=== PATIENT | female | born 1975 | race Caucasian/White ===

== ENCOUNTER 2016-08-06 17:03 | Emergency (ER) | payer MEDICAID ==
[~2016-08-06] VITALS: Ht 172.7 cm; Wt 190.6 kg
[~2016-08-06 17:03] MED LIST: ALBU6.7H INH; ALBU8I INH; CITA20 PO; COUM5TAB PO; DOCU1CAP39 PO; LEVO75TA3 PO; METF500 PO; METO25 PO; PRAV40 PO; PRED50 PO; WARF-60 PO; ZITH250T PO
[2016-08-06 17:05] VITALS: BP 113/75; PULSE 86; RESP 19; TEMP 97.6; O2SAT 97
[2016-08-06] MEDS ORDERED: VESI5TAB PO (17:54)
[2016-08-06] MEDS ORDERED: GABA300C5 PO (17:54)
[2016-08-06] MEDS ORDERED: METO25TA3 PO (17:54)
[2016-08-06] MEDS ORDERED: METF1000 PO (17:54)
[2016-08-06] MEDS ORDERED: MELO-1 PO (17:54)
[2016-08-06] MEDS ORDERED: CYCL1TAB29 PO (17:54)
[2016-08-06] MEDS ORDERED: CITA40TA4 PO (17:54)
[2016-08-06] MEDS ORDERED: HYDR-3583 PO (17:54)
--- NOTE | 2016-08-06 18:00 | PD ---
HPI Chief Complaint: Skin Problem Time Seen by Provider: 17:50 Travel History International Travel<30 days: No Contact w/Intl Traveler<30days: No Traveled to known affect area: No History of Present Illness HPI 41-year-old female with history of PCOS on Depo-Provera, hypertension who presents for evaluation of right leg pain. Symptoms started 1 week ago. Pain is an aching pain in the right calf and distal thigh that is constant and worse with walking. Associated with redness and swelling. She has never had a DVT but she does report that 5 years ago she had an unprovoked PE and she was on Coumadin for a few years, discontinued about 1.5 years ago. Denies any trauma to the leg, denies any recent surgery, chest pain or shortness of breath. She did recently travel to [place]. No other complaints. PFSH Past Medical History Hx Anticoagulant Therapy: Yes (WARFARIN - OFF X 1 MONTH) Depression: Yes High Cholesterol: Yes Diminished Hearing: No Hypertension: Yes Medical other: Yes (hx pe) Reproductive: Yes (pcos) Immunizations Current: Yes Tetanus Vaccination: Unknown Influenza Vaccination: No ?: Not LMP: 1 MONTH Dilation and Curettage (D&C): Yes Past Surgical History Tonsillectomy: Yes Social History Alcohol Use: Yes (OCC ) Tobacco Use: Yes (1/2 PACK ) Substance Use: No Allergies-Medications (Allergen,Severity, Reaction): Coded Allergies: Egg Allergy (Verified Allergy, Severe, Nausea/Vomiting, 08/06/16) Actifed (Verified Allergy, Intermediate, rash, 08/06/16) Celebrex (Verified Allergy, Intermediate, rash, 08/06/16) Reported Meds & Prescriptions Reported Meds & Active Scripts Active Reported Hydrocodone-Acetaminophen 10-325 mg Tab 1 Tab PO Q4H PRN Flexeril (Cyclobenzaprine HCl) 10 Mg Tab 10 Mg PO TID Meloxicam 15 Mg Tab 15 Mg PO DAILY Citalopram (Citalopram Hydrobromide) 40 Mg Tab 40 Mg PO DAILY Vesicare (Solifenacin) 5 Mg Tab 5 Mg PO DAILY Metoprolol Tartrate 25 Mg Tab 25 Mg PO BID Metformin (Metformin HCl) 1,000 Mg Tab 1,000 Mg PO BIDPC With meals Gabapentin 300 Mg Cap 300 Mg PO BID Review of Systems Except as stated in HPI: all other systems reviewed are Neg Physical Exam Narrative GENERAL: Well-developed well-nourished female in no acute distress SKIN: Warm and dry. Right lower leg skin redness and tenderness to palpation. No puncture wounds, no induration or fluctuance. HEAD: Atraumatic. Normocephalic. EYES: Pupils equal and round. No scleral icterus. No injection or drainage. ENT: No nasal bleeding or discharge. Mucous membranes pink and moist. NECK: Trachea midline. No JVD. CARDIOVASCULAR: Regular rate and rhythm. No murmur appreciated. RESPIRATORY: No accessory muscle use. Clear to auscultation. Breath sounds equal bilaterally. GASTROINTESTINAL: Abdomen soft, non-tender, nondistended. MUSCULOSKELETAL: Skin as noted above with no actual pitting edema to the right lower leg. There is some tenderness to palpation of the right calf and distal thigh musculature. 2+ dorsalis pedis and posterior tibial pulses. NEUROLOGICAL: Awake and alert. No obvious cranial nerve deficits. Motor grossly within normal limits. Normal speech. Data Data Last Documented VS Vital Signs Date Time Temp Pulse Resp B/P Pulse Ox O2 Delivery O2 Flow Rate FiO2 08/06/16 17:05 97.6 86 19 113/75 97 Orders Us Leg Venous Doppler (08/06/16 17:56) Complete Blood Count With Diff (08/06/16 17:57) Basic Metabolic Panel (Bmp) (08/06/16 17:57) Act Partial Throm Time (Ptt) (08/06/16 17:57) Prothrombin Time / Inr (Pt) (08/06/16 17:57) Clindamycin Inj (Cleocin Inj) (08/06/16 19:45) Labs Laboratory Tests Test 08/06/16 18:00 White Blood Count 18.8 TH/MM3 Red Blood Count 5.18 MIL/MM3 Hemoglobin 14.4 GM/DL Hematocrit 43.7 % Mean Corpuscular Volume 84.2 FL Mean Corpuscular Hemoglobin 27.8 PG Mean Corpuscular Hemoglobin 33.0 % Concent Red Cell Distribution Width 14.8 % Platelet Count 401 TH/MM3 Mean Platelet Volume 7.2 FL Neutrophils (%) (Auto) 62.6 % Lymphocytes (%) (Auto) 27.0 % Monocytes (%) (Auto) 5.1 % Eosinophils (%) (Auto) 2.1 % Basophils (%) (Auto) 3.2 % Neutrophils # (Auto) 11.7 TH/MM3 Lymphocytes # (Auto) 5.1 TH/MM3 Monocytes # (Auto) 1.0 TH/MM3 Eosinophils # (Auto) 0.4 TH/MM3 Basophils # (Auto) 0.6 TH/MM3 CBC Comment DIFF FINAL Differential Comment Prothrombin Time 10.3 SEC Prothromb Time International 0.9 RATIO Ratio Activated Partial 26.6 SEC Thromboplast Time Sodium Level 141 MEQ/L Potassium Level 4.2 MEQ/L Chloride Level 104 MEQ/L Carbon Dioxide Level 28.2 MEQ/L Anion Gap 9 MEQ/L Blood Urea Nitrogen 15 MG/DL Creatinine 1.20 MG/DL Estimat Glomerular Filtration 50 ML/MIN Rate Random Glucose 80 MG/DL Calcium Level 8.8 MG/DL [facility] Medical Decision Making Medical Screen Exam Complete: Yes Emergency Medical Condition: Yes Medical Record Reviewed: Yes Differential Diagnosis Right leg DVT, cellulitis, dependent edema, erysipelas Narrative Course 41-year-old female presents with right leg pain and redness for the past week. We'll check for DVT with ultrasound, basic lab work ordered. Ultrasound is negative. She does have an elevated white count at 18.8. She appears well. She does not appear septic. Plan is to treat her for cellulitis as an outpatient. She'll be given a dose of IV clindamycin here and discharged with Bactrim and Keflex. Return for worsening symptoms. Diagnosis Primary Impression: Cellulitis of right leg Additional Instructions: Antibiotics as prescribed. Follow-up with primary care physician. Return for worsening symptoms. Med/Other Pt SpecificInfo: Prescription(s) given Scripts Cephalexin (Keflex)500 Mg [id number] Mg PO Q6H 10 Days Ref 0 Prov:Mercedes Vernon MD 08/06/16 Sulfamethoxazole-Trimethoprim (Bactrim DS)800-160 Mg Tab1 Tab PO BID #20 TAB Ref 0 Prov:Mercedes Vernon MD 08/06/16 Disposition: 01 DISCHARGE HOME Condition: Stable George Horton Aug 06, 2016 18:00
[2016-08-06 18:12] LABS: AUTOMATED NEUTROPHIL # 11.7 TH/MM3 (1.8-7.7); BASOPHIL # 0.6 TH/MM3 (0-0.2); BASOPHIL % 3.2 % (0.0-2.0); EOSINOPHIL # 0.4 TH/MM3 (0-0.4); EOSINOPHIL % 2.1 % (0.0-4.0); HEMATOCRIT 43.7 % (35.0-46.0); LYMPHOCYTE # 5.1 TH/MM3 (1.0-4.8); MEAN CELL VOLUME 84.2 FL (80.0-100.0); MEAN CORPUSCULAR HEMOGLOBIN 27.8 PG (27.0-34.0); MONO % 5.1 % (0.0-8.0); NEUT % 62.6 % (16.0-70.0); PLATELET COUNT 401 TH/MM3 (150-450); RED BLOOD COUNT 5.18 MIL/MM3 (4.00-5.30); RED CELL DISTRIBUTION WIDTH 14.8 % (11.6-17.2); WHITE BLOOD COUNT 18.8 TH/MM3 (4.0-11.0)
[2016-08-06 18:18] LABS: HEMO FLAGS DIFF FINAL
[2016-08-06 18:23] LABS: POTASSIUM 4.2 MEQ/L (3.5-5.1)
[2016-08-06 18:25] LABS: BICARBONATE 28.2 MEQ/L (21.0-32.0)
[2016-08-06 18:28] LABS: APTT (PATIENT) 26.6 SEC (24.3-30.1); INTERNATIONAL NORMALIZED RATIO 0.9 RATIO; PROTHROMBIN TIME - PATIENT 10.3 SEC (9.8-11.6)
--- NOTE | 2016-08-06 19:23 | RADHPO ---
EXAM DATE/TIME: 08/06/2016 18:47 [facility] COMPARISON: No previous studies available for comparison. INDICATIONS : Right leg pain and redness. MEDICAL HISTORY : Hypercholesterolemia. Hypertension. Pulmonary embolism. Polycystic ovarian syndrome. Anticoagulan t therapy, Warfarin. Depression. SURGICAL HISTORY : Tonsillectomy. Dilation and curettage. ENCOUNTER: Initial ACUITY: 1 week PAIN SCORE: 4/10 LOCATION: Right leg. TECHNIQUE: Venous ultrasound of the leg was performed from the inguinal ligament to the proximal calf. Real-kimberlee e, color Doppler and spectral tracing, compression and augmentation techniques were used. FINDINGS: There is normal compressibility of the deep venous system from the inguinal region to the proximal ca lf. No echogenic clot is seen in the lumen of the common femoral, femoral, popliteal, and posterior tibial veins. There is a normal response of the venous system to proximal and distal augmentation an d respiration. CONCLUSION: Negative exam with no evidence of deep venous thrombosis. Neo Marroquin MD on August 06, 2016 at 19:21 Board Certified Radiologist. This report was verified electronically.
[2016-08-06] MEDS ORDERED: BACT800T5 PO (19:35)
[2016-08-06] MEDS ORDERED: CEPH-460 PO (19:35)
[2016-08-06] MEDS ORDERED: CLINDAMYCIN INJ 600 MG in SODIUM CHLORIDE 0.9% INJ 100 ML IV ONE (19:45)
[2016-08-06 19:57] VITALS: BP 109/56; PULSE 84; RESP 18; O2SAT 97
== END 2016-08-06 20:47 | disposition home or self-care (01) ==
LOC: PHED 17:03 → PHEFT 20:47
DX: L03.115 Cellulitis of right lower limb (principal); I10 Essential (primary) hypertension; E28.2 Polycystic ovarian syndrome; E78.00 Pure hypercholesterolemia, unspecified; Z86.711 Personal history of pulmonary embolism; F17.210 Nicotine dependence, cigarettes, uncomplicated; D72.829 Elevated white blood cell count, unspecified
CPT/HCPCS: 80048; 85025; 85610; 85730; 93971; 96365

== ENCOUNTER 2016-08-09 10:38 | Emergency (ER) | payer MEDICAID ==
[~2016-08-09] VITALS: Ht 172.7 cm; Wt 186.9 kg
[~2016-08-09 10:38] MED LIST changes: -ALBU6.7H INH; -ALBU8I INH; +BACT800T5 PO; +CEPH-460 PO; -CITA20 PO; +CITA40TA4 PO; -COUM5TAB PO; +CYCL1TAB29 PO; -DOCU1CAP39 PO; +GABA300C5 PO; +HYDR-3583 PO; -LEVO75TA3 PO; +MELO-1 PO; +METF1000 PO; -METF500 PO; -METO25 PO; +METO25TA3 PO; -PRAV40 PO; -PRED50 PO; +VESI5TAB PO; -WARF-60 PO; -ZITH250T PO
[2016-08-09 10:49] VITALS: BP 138/72; PULSE 76; RESP 18; TEMP 98.1; O2SAT 96
--- NOTE | 2016-08-09 12:14 | PD ---
HPI Chief Complaint: Skin Problem Time Seen by Provider: 12:14 Travel History International Travel<30 days: No Contact w/Intl Traveler<30days: No Traveled to known affect area: No History of Present Illness HPI 41-year-old female presents to the ED for recheck of cellulitis of the right lower leg. Patient was seen on 08/06 given IV clindamycin and discharged with by mouth Bactrim and Keflex. She endorses compliance with medication. On presentation she complains of itching of the rash of her right lower leg. She states that she feels as if it's spread slightly. She does endorse improvement of the pain symptoms that were present initially. She denies fever or chills. PFSH Past Medical History Hx Anticoagulant Therapy: Yes (WARFARIN - OFF X 1 MONTH) Depression: Yes High Cholesterol: Yes Diminished Hearing: No Hypertension: Yes Reproductive: Yes (pcos) Immunizations Current: Yes Tetanus Vaccination: Unknown Influenza Vaccination: No ?: Unknown Dilation and Curettage (D&C): Yes Past Surgical History Tonsillectomy: Yes Social History Alcohol Use: Yes (OCC ) Tobacco Use: Yes (1/2 PACK ) Substance Use: No Allergies-Medications (Allergen,Severity, Reaction): Coded Allergies: Egg Allergy (Verified Allergy, Severe, Nausea/Vomiting, 08/06/16) Actifed (Verified Allergy, Intermediate, rash, 08/06/16) Celebrex (Verified Allergy, Intermediate, rash, 08/06/16) Reported Meds & Prescriptions Reported Meds & Active Scripts Active Keflex (Cephalexin) 500 Mg Cap 500 Mg PO Q6H 10 Days Bactrim DS (Sulfamethoxazole-Trimethoprim) 800-160 Mg Tab 1 Tab PO BID Reported Hydrocodone-Acetaminophen 10-325 mg Tab 1 Tab PO Q4H PRN Flexeril (Cyclobenzaprine HCl) 10 Mg Tab 10 Mg PO TID Meloxicam 15 Mg Tab 15 Mg PO DAILY Citalopram (Citalopram Hydrobromide) 40 Mg Tab 40 Mg PO DAILY Vesicare (Solifenacin) 5 Mg Tab 5 Mg PO DAILY Metoprolol Tartrate 25 Mg Tab 25 Mg PO BID Metformin (Metformin HCl) 1,000 Mg Tab 1,000 Mg PO BIDPC With meals Gabapentin 300 Mg Cap 300 Mg PO BID Review of Systems Except as stated in HPI: all other systems reviewed are Neg Physical Exam Narrative GENERAL: Well-nourished, well-developed well-appearing obese white female in no acute distress. SKIN: Warm and dry. Scattered erythematous rash of the left lower extremity. Concentrated on the anterior lower salazar, diffusing and scattered to just below the popliteal space. No popliteal LAD. HEAD: Normocephalic. EYES: No scleral icterus. No injection or drainage. NECK: Supple, trachea midline. No JVD or lymphadenopathy. CARDIOVASCULAR: Regular rate and rhythm without murmurs, gallops, or rubs. RESPIRATORY: Breath sounds equal bilaterally. No accessory muscle use. GASTROINTESTINAL: Abdomen soft, non-tender, nondistended. MUSCULOSKELETAL: No cyanosis, or edema. BACK: Nontender without obvious deformity. No CVA tenderness. Data Data Last Documented VS Vital Signs Date Time Temp Pulse Resp B/P Pulse Ox O2 Delivery O2 Flow Rate FiO2 08/09/16 10:49 98.1 76 18 138/72 96 Room Air Orders Complete Blood Count With Diff (08/09/16 12:20) Labs Laboratory Tests Test 08/09/16 12:20 White Blood Count 14.4 TH/MM3 Red Blood Count 5.01 MIL/MM3 Hemoglobin 14.0 GM/DL Hematocrit 41.9 % Mean Corpuscular Volume 83.6 FL Mean Corpuscular Hemoglobin 27.9 PG Mean Corpuscular Hemoglobin 33.4 % Concent Red Cell Distribution Width 14.8 % Platelet Count 353 TH/MM3 Mean Platelet Volume 7.3 FL Neutrophils (%) (Auto) 62.0 % Lymphocytes (%) (Auto) 21.6 % Monocytes (%) (Auto) 6.9 % Eosinophils (%) (Auto) 5.9 % Basophils (%) (Auto) 3.6 % Neutrophils # (Auto) 8.9 TH/MM3 Lymphocytes # (Auto) 3.1 TH/MM3 Monocytes # (Auto) 1.0 TH/MM3 Eosinophils # (Auto) 0.9 TH/MM3 Basophils # (Auto) 0.5 TH/MM3 CBC Comment DIFF FINAL Differential Comment MDM Medical Decision Making Medical Screen Exam Complete: Yes Emergency Medical Condition: Yes Differential Diagnosis cellulitis versus sepsis versus wound recheck versus other Narrative Course 41-year-old female presents to the ED for recheck of cellulitis of the right lower leg. Patient was seen on 08/06 given IV clindamycin and discharged with by mouth Bactrim and Keflex. She endorses compliance with medication. On presentation she complains of itching of the rash of her right lower leg. She states that she feels as if it's spread slightly. She does endorse improvement of the pain symptoms that were present initially. She denies fever or chills. Vitals reviewed. Physical exam reveals an obese white female in no acute distress. There is a scattered erythematous rash of the left lower extremity. Concentrated on the anterior lower salazar, diffusing and scattered to just below the popliteal space. No popliteal LAD. I reviewed the patient's record and was unable to ascertain if the symptoms had indeed worsened. CBC reveals white count of 14.4, decreased as compared to previous white count of 18+. Patient was instructed to continue taking antibiotics as prescribed, consider adding an anti-inflammatory medication, follow up with primary care provider. We discussed reasons to return to the ED. She indicated understanding instructions and was amenable to plan of care. She is stable and discharged home. Diagnosis Primary Impression: Cellulitis of right leg Referrals: Primary Care Physician Patient Instructions: Cellulitis (ED), General Instructions Additional Instructions: Rest, hydrate. Avoid hot showers as this can worsen the rash. Continue taking antibiotics as prescribed. Consider taking 400 mg of ibuprofen every 8 hours to reduce inflammation. Follow up with your primary care provider. Return to the ED for any urgent or emergent medical condition. Disposition: 01 DISCHARGE HOME Condition: Stable Beena Rao Aug 09, 2016 12:14
[2016-08-09 12:44] LABS: AUTOMATED NEUTROPHIL # 8.9 TH/MM3 (1.8-7.7); BASOPHIL # 0.5 TH/MM3 (0-0.2); BASOPHIL % 3.6 % (0.0-2.0); EOSINOPHIL # 0.9 TH/MM3 (0-0.4); EOSINOPHIL % 5.9 % (0.0-4.0); HEMATOCRIT 41.9 % (35.0-46.0); HEMO FLAGS DIFF FINAL; LYMPH % 21.6 % (9.0-44.0); LYMPHOCYTE # 3.1 TH/MM3 (1.0-4.8); MEAN CELL VOLUME 83.6 FL (80.0-100.0); MEAN CORPUSCULAR HEMOGLOBIN 27.9 PG (27.0-34.0); MEAN CORPUSCULAR HGB CONC 33.4 % (32.0-36.0); MONO % 6.9 % (0.0-8.0); PLATELET COUNT 353 TH/MM3 (150-450); RED BLOOD COUNT 5.01 MIL/MM3 (4.00-5.30); RED CELL DISTRIBUTION WIDTH 14.8 % (11.6-17.2); WHITE BLOOD COUNT 14.4 TH/MM3 (4.0-11.0)
== END 2016-08-09 13:17 | disposition home or self-care (01) ==
LOC: PHEFT 10:38
DX: L03.115 Cellulitis of right lower limb (principal)
CPT/HCPCS: 85025; 99283

== ENCOUNTER 2016-12-30 15:51 | Observation (INO) | payer MEDICAID, OTHER ==
[~2016-12-30] VITALS: Ht 172.7 cm; Wt 200.0 kg
[2016-12-30 15:53] VITALS: BP 118/56; PULSE 77; RESP 18; TEMP 97.8; O2SAT 94
--- NOTE | 2016-12-30 15:59 | PD ---
Physical Exam Date Seen by Provider: Dec 30, 2016 Time Seen by Provider: 15:53 Narrative Pt is a 41 year old female presenting to the ED for evaluation of chest pain, SOB, low O2 readings at home. Pt described the chest pain as a squeezing sensation that radiates to her neck. Pt reports her pain as a 4/10. Awaiting bed placement. MDM Supervised Visit with KODI: Gaby Whittington Dec 30, 2016 15:59
[2016-12-30] MEDS ORDERED: SODIUM CHLORIDE 0.9% FLUSH 10 ML FLUSH IVF PRN (18:15)
[2016-12-30] MEDS ORDERED: ASPIRIN 325 MG TAB PO ONE (18:15)
[2016-12-30] MEDS ORDERED: BUPR150CR PO (18:42)
[2016-12-30] MEDS ORDERED: METO50TA PO (18:42)
[2016-12-30 18:44] LABS: BASOPHIL # 0.1 TH/MM3 (0-0.2); BASOPHIL % 0.5 % (0.0-2.0); EOSINOPHIL # 0.7 TH/MM3 (0-0.4); EOSINOPHIL % 4.9 % (0.0-4.0); HEMATOCRIT 38.7 % (35.0-46.0); HEMO FLAGS DIFF FINAL; LYMPH % 28.1 % (9.0-44.0); LYMPHOCYTE # 4.2 TH/MM3 (1.0-4.8); MEAN CELL VOLUME 84.6 FL (80.0-100.0); MEAN CORPUSCULAR HEMOGLOBIN 28.2 PG (27.0-34.0); MEAN CORPUSCULAR HGB CONC 33.4 % (32.0-36.0); MONO % 6.3 % (0.0-8.0); NEUT % 60.2 % (16.0-70.0); PLATELET COUNT 313 TH/MM3 (150-450); RED BLOOD COUNT 4.57 MIL/MM3 (4.00-5.30); RED CELL DISTRIBUTION WIDTH 15.7 % (11.6-17.2); WHITE BLOOD COUNT 14.9 TH/MM3 (4.0-11.0)
[2016-12-30] MEDS ORDERED: NITROGLYCERIN 0.4 MG SL 25 TABS/BTL SL ONE (18:45)
[2016-12-30] MEDS ORDERED: TRAZ50TA12 PO (18:46)
[2016-12-30] MEDS ORDERED: K-TA10TA PO (18:46)
[2016-12-30] MEDS ORDERED: FURO1TAB62 PO (18:46)
[2016-12-30] MEDS ORDERED: CETI-1 PO (18:46)
[2016-12-30] MEDS ORDERED: MEDR150I IM (18:46)
[2016-12-30] MEDS ORDERED: LOSA100T PO (18:46)
--- NOTE | 2016-12-30 18:51 | RADRPT ---
EXAM DATE/TIME: 12/30/2016 18:03 [facility] COMPARISON: CHEST SINGLE AP, October 20, 2015, 19:18. INDICATIONS : Shortness of breath and chest pain. MEDICAL HISTORY : Hypertension. Smoker. Asthma. SURGICAL HISTORY : None. ENCOUNTER: Initial ACUITY: 3 days PAIN SCORE: 6/10 LOCATION: chest FINDINGS: Slight bibasilar parenchymal opacities are present. No significant effusion. Cardiac contours are sat isfactory. CONCLUSION: Mild basilar parenchymal opacities. Wing Carr MD on December 30, 2016 at 18:40 Board Certified Radiologist. This report was verified electronically.
[2016-12-30 19:02] LABS: ANION GAP 4 MEQ/L (5-15); BICARBONATE 29.1 MEQ/L (21.0-32.0); BLOOD UREA NITROGEN 9 MG/DL (7-18); CHLORIDE 101 MEQ/L (98-107); GLOMERULAR FILTRATION RATE 63 ML/MIN (>89); MAGNESIUM 2.1 MG/DL (1.5-2.5); POTASSIUM 4.1 MEQ/L (3.5-5.1); SODIUM (NA) 134 MEQ/L (136-145)
[2016-12-30 19:05] LABS: APTT (PATIENT) 25.7 SEC (24.3-30.1); INTERNATIONAL NORMALIZED RATIO 0.9 RATIO; PROTHROMBIN TIME - PATIENT 10.2 SEC (9.8-11.6)
[2016-12-30 19:07] VITALS: BP 112/55; PULSE 68; RESP 18; O2SAT 98
--- NOTE | 2016-12-30 19:24 | PD ---
HPI Chief Complaint: Chest Pain Time Seen by Provider: 19:21 Travel History International Travel<30 days: No Contact w/Intl Traveler<30days: No Traveled to known affect area: No History of Present Illness HPI 41-year-old female that presents to the ED for evaluation of left-sided chest pain and shortness of breath. Per patient she's had this on and off for the past 2-3 days. She has a history of pulmonary embolism in the past. Per patient she's been told that she also has CHF in the past. She has a history of smoking, hypertension, high cholesterol but takes no medications for the cholesterol and no diabetes. She does have a strong family history of heart disease. She states that nothing makes it better or worse. Per patient the pain has become more consistent today and this is concerning her. Per patient he comes in spells but they're becoming more frequent. Per patient the pain is 6 out of 10. No recent travel. Takes no hormones. Denies any abdominal pain. Nausea or vomiting. No bowel movement or urinary issues. She has not taken anything for this. Taken no aspirin today. She has noticed in the area. she does tell me that she has a history of irregular heart rate that comes on and off and she takes medications for this. PFSH Past Medical History Hx Anticoagulant Therapy: Yes (WARFARIN - OFF X 1 MONTH) Depression: Yes Cardiovascular Problems: Yes (HTN, IRREGULAR HEARTBEAT, CHF) High Cholesterol: Yes Diminished Hearing: No Fibromyalgia: Yes Hypertension: Yes Musculoskeletal: Yes (chronic knee and back pain) Reproductive: Yes (pcos) Respiratory: Yes (SLEEP APNEA) Immunizations Current: Yes Sleep Apnea: Yes Influenza Vaccination: No ?: Not LMP: 2016 - PT ON DEPO PROVERA : 1 Para: 1 Dilation and Curettage (D&C): Yes Past Surgical History Tonsillectomy: Yes Social History Alcohol Use: Yes (OCC ) Tobacco Use: Yes (5 cigs) Substance Use: No Allergies-Medications (Allergen,Severity, Reaction): Coded Allergies: Egg Allergy (Verified Allergy, Severe, Nausea/Vomiting, 12/30/16) Sulfa (Verified Allergy, Severe, SHORTNESS OF BREATH, HIVES, 12/30/16) Actifed (Verified Allergy, Intermediate, rash, 12/30/16) Celebrex (Verified Allergy, Intermediate, rash, 12/30/16) Reported Meds & Prescriptions Reported Meds & Active Scripts Active Reported Zyrtec (Cetirizine HCl) 10 Mg Tablet 10 Mg PO HS Losartan (Losartan Potassium) 100 Mg Tab 100 Mg PO DAILY K-Tab (Potassium Chloride) 10 Meq Tab 10 Meq PO DAILY Lasix (Furosemide) 20 Mg Tab 20 Mg PO DAILY Trazodone (Trazodone HCl) 50 Mg Tab 50 Mg PO HS Medroxyprogesterone Inj 150 Mg/Ml Inj 150 Mg IM Q90D Wellbutrin SR 12 HR (Bupropion HCl) 150 Mg Tab 150 Mg PO Q12HR Metoprolol Tartrate 50 Mg Tab 50 Mg PO BID Hydrocodone-Acetaminophen 10-325 mg Tab 1 Tab PO Q8HR PRN Flexeril (Cyclobenzaprine HCl) 10 Mg Tab 10 Mg PO TID Meloxicam 15 Mg Tab 15 Mg PO DAILY Citalopram (Citalopram Hydrobromide) 40 Mg Tab 40 Mg PO DAILY Vesicare (Solifenacin) 5 Mg Tab 5 Mg PO DAILY Metformin (Metformin HCl) 1,000 Mg Tab 1,000 Mg PO BIDPC With meals Gabapentin 300 Mg Cap 300 Mg PO TID Review of Systems Except as stated in HPI: all other systems reviewed are Neg Physical Exam Narrative GENERAL: Very overweight SKIN: Warm and dry. HEAD: Atraumatic. Normocephalic. EYES: Pupils equal and round. No scleral icterus. No injection or drainage. ENT: No nasal bleeding or discharge. Mucous membranes pink and moist. Tongue is midline. No uvula deviation. NECK: Trachea midline. No JVD. CARDIOVASCULAR: Regular rate and rhythm. No murmurs, S3, S4. RESPIRATORY: No accessory muscle use. Clear to auscultation. Breath sounds equal bilaterally. GASTROINTESTINAL: Abdomen soft, non-tender, nondistended. Hepatic and splenic margins not palpable. MUSCULOSKELETAL: Extremities without clubbing, cyanosis, or edema. No obvious deformities. Full range of motion of the upper and lower extremities bilaterally. 2+ pulses bilaterally. NEUROLOGICAL: Awake and alert. No obvious cranial nerve deficits. Motor grossly within normal limits. Five out of 5 muscle strength in the arms and legs. Normal speech. PSYCHIATRIC: Appropriate mood and affect; insight and judgment normal. Data Data Last Documented VS Vital Signs Date Time Temp Pulse Resp B/P Pulse Ox O2 Delivery O2 Flow Rate FiO2 12/30/16 19:07 68 18 112/55 98 12/30/16 15:53 97.8 Orders Electrocardiogram (12/30/16 18:06) Basic Metabolic Panel (Bmp) (12/30/16 18:06) B-Type Natriuretic Peptide (12/30/16 18:06) Ckmb (Isoenzyme) Profile (12/30/16 18:06) Complete Blood Count With Diff (12/30/16 18:06) D-Dimer (12/30/16 18:) Magnesium (Mg) (12/30/16 18:06) Prothrombin Time / Inr (Pt) (12/30/16 18:06) Act Partial Throm Time (Ptt) (12/30/16 18:06) Troponin I (12/30/16 18:) Lipase (12/30/16 18:06) Chest, Single Ap (12/30/16 18:06) Ecg Monitoring (12/30/16 18:06) Bilateral Bp Monitoring (12/30/16 18:06) Iv Access Insert/Monitor (12/30/16 18:06) Oximetry (12/30/16 18:06) Oxygen Administration (12/30/16 18:06) Aspirin (Aspirin) (12/30/16 18:15) Sodium Chloride 0.9% Flush (Ns Flush) (12/30/16 18:15) Electrocardiogram (12/30/16 15:48) Urinalysis - C+S If Indicated (12/30/16 18:41) Nitroglycerin Sl (Nitrostat Sl) (12/30/16 18:45) Ct Pulmonary Angiogram (12/30/16 19:29) Iohexol 350 Inj (Omnipaque 350 Inj) (12/30/16 20:01) Diet As Tolerated (12/30/16 20:59) Admit Order (Ed Use Only) (12/30/16 22:06) Labs Laboratory Tests Test 12/30/16 12/30/16 18:20 19:35 White Blood Count 14.9 TH/MM3 Red Blood Count 4.57 MIL/MM3 Hemoglobin 12.9 GM/DL Hematocrit 38.7 % Mean Corpuscular Volume 84.6 FL Mean Corpuscular Hemoglobin 28.2 PG Mean Corpuscular Hemoglobin 33.4 % Concent Red Cell Distribution Width 15.7 % Platelet Count 313 TH/MM3 Mean Platelet Volume 7.2 FL Neutrophils (%) (Auto) 60.2 % Lymphocytes (%) (Auto) 28.1 % Monocytes (%) (Auto) 6.3 % Eosinophils (%) (Auto) 4.9 % Basophils (%) (Auto) 0.5 % Neutrophils # (Auto) 9.0 TH/MM3 Lymphocytes # (Auto) 4.2 TH/MM3 Monocytes # (Auto) 0.9 TH/MM3 Eosinophils # (Auto) 0.7 TH/MM3 Basophils # (Auto) 0.1 TH/MM3 CBC Comment DIFF FINAL Differential Comment Prothrombin Time 10.2 SEC Prothromb Time International 0.9 RATIO Ratio Activated Partial 25.7 SEC Thromboplast Time D-Dimer Quantitative (PE/DVT) 0.56 MG/L FEU Sodium Level 134 MEQ/L Potassium Level 4.1 MEQ/L Chloride Level 101 MEQ/L Carbon Dioxide Level 29.1 MEQ/L Anion Gap 4 MEQ/L Blood Urea Nitrogen 9 MG/DL Creatinine 0.98 MG/DL Estimat Glomerular Filtration 63 ML/MIN Rate Random Glucose 85 MG/DL Calcium Level 9.2 MG/DL Magnesium Level 2.1 MG/DL Total Creatine Kinase 33 U/L Troponin I LESS THAN 0.02 NG/ML B-Type Natriuretic Peptide 20 PG/ML Lipase 105 U/L Urine Color YELLOW Urine Turbidity CLEAR Urine pH 5.5 Urine Specific [place] 1.016 Urine Protein NEG mg/dL Urine Glucose (UA) NEG mg/dL Urine Ketones NEG mg/dL Urine Occult Blood SMALL Urine Nitrite NEG Urine Bilirubin NEG Urine Urobilinogen LESS THAN 2.0 MG/DL Urine Leukocyte Esterase LARGE Urine WBC 4 /hpf Urine Squamous Epithelial 2 /hpf Cells Microscopic Urinalysis Comment CULT NOT INDICATED MDM Medical Decision Making Medical Screen Exam Complete: Yes Emergency Medical Condition: Yes Medical Record Reviewed: Yes Interpretation(s) EKG shows sinus rhythm with no sign of acute ischemia or arrhythmia. Read by me and attending. CBC Diagram 12/30/16 18:20 BMP Diagram 12/30/16 18:20 Last Impressions Chest X-Ray 12/30/16 1806 Signed Impressions: Service Date/Time: Friday, December 30, 2016 18:03 - CONCLUSION: Mild basilar parenchymal opacities. Wing Carr MD CT pulm negative Troponin and CKMB negative Differential Diagnosis Chest pain versus a typical chest pain versus PE versus ACS versus pneumonia versus CHF Narrative Course 41-year-old female that presents to the ED for evaluation of chest pain. Patient was properly examined and was found to have signs and symptoms consistent appears to be chest pain. Unclear etiology. Labs and imaging were ordered. Patient was given aspirin as well. Labs and imaging showed no sign of acute disease. Patient was reassured. At this time patient will be admitted to the chest pain center for chest pain workup. Patient agrees with plan. Diagnosis Primary Impression: Chest pain in adult Admitting Information Admitting Physician Requests: Observation Yvon Layne Dec 30, 2016 19:24
[2016-12-30] MEDS ORDERED: IOHEXOL 350 MG/ML 10 ML VIAL (for RAD DIAG) IV ONE (20:01)
[2016-12-30 20:04] LABS: BLOOD, URINE SMALL (NEG); COMMENT (UR) CULT NOT INDICATED; CULTURE IF INDICATED CULT NOT INDICATED; GLUCOSE,URINE NEG (NEG); KETONE, URINE NEG (NEG); NITRITE,URINE NEG (NEG); PH, URINE 5.5 (5.0-8.5); SQUAMOUS EPITHELIAL CELL URINE 2 /hpf (0-5); URINE COLOR YELLOW (YELLW/STRAW)
--- NOTE | 2016-12-30 20:11 | RADRPT ---
EXAM DATE/TIME: 12/30/2016 19:47 [facility] COMPARISON: No previous studies available for comparison. INDICATIONS : Chest pain. IV CONTRAST: 75 cc Omnipaque 350 (iohexol) IV RADIATION DOSE: 25.62 CTDIvol (mGy) ; Patient body habitus MEDICAL HISTORY : Hypertension. Cardiovascular disease Congestive heart failure. SURGICAL HISTORY : Tonsillectomy. D&C ENCOUNTER: Initial ACUITY: 1 day PAIN SCALE: 6/10 LOCATION: Bilateral chest TECHNIQUE: Volumetric scanning of the chest was performed using a pulmonary embolism protocol MIP images were re constructed. Using automated exposure control and adjustment of the mA and/or kV according to patien t size, radiation dose was kept as low as reasonably achievable to obtain optimal diagnostic quality images. DICOM format image data is available electronically for review and comparison. Follow-up recommendations for detected pulmonary nodules are based at a minimum on nodule size and pa tient risk factors according to Fleischner Society Guidelines. FINDINGS: No filling defects in the pulmonary arteries to suggest pulmonary embolic disease. There is chronic a telectasis and scarring at the right lung base. No pleural or pericardial effusion. Findings are lima lar to September 2015. No acute findings in the upper abdomen. CONCLUSION: 1. Negative for pulmonary embolus. Chronic scarring and atelectasis right lung base. Christopher Hoyt MD on December 30, 2016 at 20:07 Board Certified Radiologist. This report was verified electronically.
[2016-12-30 21:51] LABS: CREATINE KINASE 33 U/L (26-192)
[2016-12-30] MEDS ORDERED: SODIUM CHLORIDE 0.9% FLUSH 10 ML FLUSH IV FLUSH PRN (22:15)
[2016-12-30 22:25] VITALS: O2SAT 96
[2016-12-30 23:07] VITALS: BP 115/56; PULSE 83; RESP 18; O2SAT 99
[2016-12-30 23:55] LABS: CREATINE KINASE 34 U/L (26-192)
[2016-12-31] VITALS (7 sets, daily range): BP systolic 99–128; BP diastolic 53–58; PULSE 72–84; RESP 20–22; TEMP 97.8–98.1; O2SAT 95–96
[2016-12-31 02:38] LABS: CREATINE KINASE 25 U/L (26-192)
[2016-12-31] MEDS ORDERED: ONDANSETRON HCL 4 MG/2 ML VIAL IV PRN (08:00)
[2016-12-31] MEDS ORDERED: NITROGLYCERIN 0.4 MG SL 25 TABS/BTL SL PRN (08:00)
[2016-12-31] MEDS ORDERED: ACETAMINOPHEN 500 MG CPLT PO PRN (08:00)
[2016-12-31] MEDS ORDERED: SODIUM CHLORIDE 0.9% FLUSH 10 ML FLUSH IV FLUSH SCH (09:00)
--- NOTE | 2016-12-31 09:34 | HHI.HP ---
[facility] Primary Care Physician Dr. Jimenez Chief Complaint Chest pain History of Present Illness 41-year-old female with history of hypertension, morbidly obese, hyperlipidemia , and chronic pain presents to emergency room for further evaluation of chest pain. Onset Monday. Location left anterior chest and under her left breast. Characterized as sharp stabbing pain. Duration seconds. Since Monday pain was intermittent stating Monday pain became more frequent and severe. No associated symptoms of nausea, vomiting, diaphoresis, or shortness of breath. Endorses deep breathing made pain worse. No particular movements or position make pain better or worse. No known precipitating factors relieving factors may have been aspirin provided emergency room stating after receiving aspirin pain "he's up." Endorses similar discomfort approximately 4 5 years ago. During that time she was thoroughly tested with cardiac stress testing and a cardiac catheterization. She was living in [place] at that time. Review of Systems General: No fatigue,weakness, fever, chills, or recent illness. Has been in her general state of health. HEENT: No AN, no vision changes, no nasal congestion or drainage CV: As stated above. No current chest pain or pressure, reporting 2 brief episodes of chest pain since arrival to chest pain center. Remote history of palpitations. No intermittent leg pain or dizziness. RESP: No SOB, cough, wheeze, or recent URI. Continues to smoke. History of asthma as a child. Diagnosed with sleep apnea. Has not uses CPAP in many months due to mask not fitting well. GI: No bowel changes, reports Intermittent diarrhea and constipation is her "normal." No nausea, vomiting, distention, melena, or blood in the stool. No change in appetite. No unintentional weight gain or weight loss. Reports she has tried multiple times to be approved for gastric banding or bypass. : No dysuria, urgency, or frequency. STORE PRODUCT DEMONSTRATOR: History of polycystic ovarian disease, last menses one year ago, no chance of reports she is a lesbian. History of endometriosis and heavy bleeding therefore was placed on Depo-Provera injection. EXT: Occasional dependent lower leg edema MS: Chronic back, right hip, and bilateral knee discomfort. Uses a cane as needed as her left knee occasional "andre." No recent falls. NEURO: No LOC or motor/sensory deficits PSYCH: History of depression currently controlled on current medication regimen. No anxiety or situational stress Past Family Social History Allergies: Coded Allergies: Egg Allergy (Verified Allergy, Severe, Nausea/Vomiting, 12/30/16) Sulfa (Verified Allergy, Severe, SHORTNESS OF BREATH, HIVES, 12/30/16) Actifed (Verified Allergy, Intermediate, rash, 12/30/16) Celebrex (Verified Allergy, Intermediate, rash, 12/30/16) Adhesives (Verified Allergy, Mild, Itching, 12/31/16) Past Medical History Hypertension, sleep apnea, fibromyalgia, chronic pain, hyperlipidemia, PE, polycystic ovarian disease, morbid obesity, endometriosis Past Surgical History Tonsillectomy, D&C Reported Medications Active Reported Zyrtec (Cetirizine HCl) 10 Mg Tablet 10 Mg PO HS Losartan (Losartan Potassium) 100 Mg Tab 100 Mg PO DAILY K-Tab (Potassium Chloride) 10 Meq Tab 10 Meq PO DAILY Lasix (Furosemide) 20 Mg Tab 20 Mg PO DAILY Trazodone (Trazodone HCl) 50 Mg Tab 50 Mg PO HS Medroxyprogesterone Inj 150 Mg/Ml Inj 150 Mg IM Q90D Wellbutrin SR 12 HR (Bupropion HCl) 150 Mg Tab 150 Mg PO Q12HR Metoprolol Tartrate 50 Mg Tab 50 Mg PO BID Hydrocodone-Acetaminophen 10-325 mg Tab 1 Tab PO Q8HR PRN Flexeril (Cyclobenzaprine HCl) 10 Mg Tab 10 Mg PO TID Meloxicam 15 Mg Tab 15 Mg PO DAILY Citalopram (Citalopram Hydrobromide) 40 Mg Tab 40 Mg PO DAILY Vesicare (Solifenacin) 5 Mg Tab 5 Mg PO DAILY Metformin (Metformin HCl) 1,000 Mg Tab 1,000 Mg PO BIDPC With meals Gabapentin 300 Mg Cap 300 Mg PO TID Active Ordered Medications Current Medications Medications (Trade) Dose Ordered Sig/Marilynn Route Start Time Stop Time Status Last Admin (NS Flush) 2 ml BID IV FLUSH 12/31/16 09:00 (Tylenol) 500 mg Q4H PRN PO 12/31/16 08:00 (Zofran Inj) 4 mg Q6H PRN IV 12/31/16 08:00 (Nitrostat Sl) 0.4 mg Q5M PRN SL 12/31/16 08:00 Family History Noncontributory for early onset cardiovascular disease. Mother from massive heart attack at age 58history of kidney disease and diabetes. Social History Known hypertension. No known diabetes, currently taking metformin for polycystic disease. Years ago diagnosed with hyperlipidemia and was on statin therapy. States current PCP has not reordered her statin but she is unsure of current lipid panel. Lifelong smoker. Smoked one2 packs daily currently smoking 5 cigarettes daily. Denies any alcohol or illegal drug use. Endorses sedentary lifestyle. . 15 year old daughter. Ambulates with a cane. Past cardiac testing No recent stress testing. Cardiac catheterization 5-6 years ago while living in [place]. Reports catheterization was normal. Physical Exam Vital Signs Vital Signs Date Time Temp Pulse Resp B/P Pulse Ox O2 Delivery O2 Flow Rate FiO2 12/31/16 08:52 97.8 75 20 128/58 95 12/31/16 04:24 98.1 78 22 113/53 96 12/31/16 03:59 84 12/31/16 00:11 72 12/30/16 23:07 83 18 115/56 99 12/30/16 22:25 96 12/30/16 19:07 68 18 112/55 98 12/30/16 19:07 68 18 112/55 98 12/30/16 18:06 81 12/30/16 15:53 97.8 77 18 118/56 94 Physical Exam GENERAL: Alert WN, WD, NAD, pleasant, morbidly obese female HEAD: NC, AT EYES: Sclera clear, conjunctiva without injection, pupils equal and round ENT: Mucous membranes pink and moist, no nasal discharge or bleeding, tongue pierced NECK: Supple, no masses, trachea midline CV: RRR, without murmur, rub, gallop, no JVD, S1-S2 no S3-S4. No carotid bruits. RESP: Clear lungs throughout bilateral, no crackles, wheeze, rhonchi, symmetrical chest rise, nonlabored, able to speak in full sentences ABD: Soft, NT, ND, no masses, positive bowel tones, obese BACK: No CVAT EXT: Pulses +24, trace dependent edema MS: Normal tone 4 extremities, left anterior chest tenderness reproducible upon palpation. No obvious deformities, full range of motion only limited due to size NEURO: CN II through CN XII grossly intact, motor strength 5/5 PSYCH: A+O 3, pleasant affect, appropriate speech, appropriate mood and affect , insight and judgment SKIN: Normal turgor, normal texture, brisk cap refill, multiple tattoos, right eyebrow piercing Laboratory Laboratory Tests Test 12/30/16 12/30/16 12/30/16 12/31/16 18:20 19:35 22:55 01:30 White Blood Count 14.9 Red Blood Count 4.57 Hemoglobin 12.9 Hematocrit 38.7 Mean Corpuscular Volume 84.6 Mean Corpuscular Hemoglobin 28.2 Mean Corpuscular Hemoglobin 33.4 Concent Red Cell Distribution Width 15.7 Platelet Count 313 Mean Platelet Volume 7.2 Neutrophils (%) (Auto) 60.2 Lymphocytes (%) (Auto) 28.1 Monocytes (%) (Auto) 6.3 Eosinophils (%) (Auto) 4.9 Basophils (%) (Auto) 0.5 Neutrophils # (Auto) 9.0 Lymphocytes # (Auto) 4.2 Monocytes # (Auto) 0.9 Eosinophils # (Auto) 0.7 Basophils # (Auto) 0.1 CBC Comment DIFF FINAL Differential Comment Prothrombin Time 10.2 Prothromb Time International 0.9 Ratio Activated Partial 25.7 Thromboplast Time D-Dimer Quantitative (PE/DVT) 0.56 Sodium Level 134 Potassium Level 4.1 Chloride Level 101 Carbon Dioxide Level 29.1 Anion Gap 4 Blood Urea Nitrogen 9 Creatinine 0.98 Estimat Glomerular Filtration 63 Rate Random Glucose 85 Calcium Level 9.2 Magnesium Level 2.1 Total Creatine Kinase 33 34 25 Troponin I LESS THAN 0.02 LESS THAN 0.02 LESS THAN 0.02 B-Type Natriuretic Peptide 20 Lipase 105 Urine Color YELLOW Urine Turbidity CLEAR Urine pH 5.5 Urine Specific [place] 1.016 Urine Protein NEG Urine Glucose (UA) NEG Urine Ketones NEG Urine Occult Blood SMALL Urine Nitrite NEG Urine Bilirubin NEG Urine Urobilinogen LESS THAN 2.0 Urine Leukocyte Esterase LARGE Urine WBC 4 Urine Squamous Epithelial 2 Cells Microscopic Urinalysis Comment CULT NOT INDICATED Result Diagram: 12/30/16181912/30/161819 Imaging Last Imp[address] CT Angiography 12/30/161928 Signed Impressions: Service Date/Time: Friday, December 30, 2016 19:47 - CONCLUSION: 1. Negative for pulmonary embolus. Chronic scarring and atelectasis right lung base. Christopher Hoyt MD Chest X-Ray 12/30/161805 Signed Impressions: Service Date/Time: Friday, December 30, 2016 18:03 - CONCLUSION: Mild basilar parenchymal opacities. Wing Carr MD Course EKG Normal sinus rhythm, normal axis, no ST or T-segment changes Assessment and Plan Assessment and Plan Chest painadmitted to chest pain center. Ruled out with 3 sets of EKGs, cardiac enzymes, and monitored overnight. Seen and evaluated by Dr. Aaron Antunez. Chest discomfort clearly musculoskeletal. Explained to patient with normal cardiac catheterization 5 years ago and reproducible chest wall pain no further cardiac testing required. Plans to discharged this afternoon. Patient and whom is at bedside, agreeable to plan a care. Musculoskeletal chest wall painencourage use of heating pad to affected area. May use [id number] Aleve, Motrin, or Tylenol as needed for pain relief. Instructed to follow-up with PCP if pain persists or not improved after 710 days. Hypertensioncontinue losartan, Lasix, Metoprolol Depressioncontinue Wellbutrin and citalopram Polycystic ovarian diseasehold metformin, instructed to restart metformin in 48 hours, Depo-Provera injection (as previously instructed), Fibromyalgia-continue gabapentin, increase daily activity as able Theresa Perez Dec 31, 2016 09:34
[2016-12-31] MEDS ORDERED: LOSARTAN 50 MG TAB PO SCH (10:00)
[2016-12-31] MEDS ORDERED: CITALOPRAM HYDROBROMIDE 40 MG TAB PO SCH (10:00)
[2016-12-31] MEDS ORDERED: buPROPion HCL 150 MG SUSTAINED RELEASE TAB PO SCH (10:00)
[2016-12-31] MEDS ORDERED: FUROSEMIDE 20 MG TAB PO SCH (10:00)
[2016-12-31] MEDS ORDERED: METOPROLOL TARTRATE 50 MG TAB PO SCH (10:00)
[2016-12-31] MEDS ORDERED: POTASSIUM CHLORIDE 10 MEQ CONTROLLED RELEASE TAB PO SCH (10:00)
[2016-12-31] MEDS ORDERED: metFORMIN HCL 500 MG TAB PO SCH (12:00)
[2016-12-31] MEDS ORDERED: diphenhydrAMINE HCL 25 MG CAP PO ONE (12:00)
--- NOTE | 2016-12-31 12:53 | HHI.DCPOC ---
Discharge Care Plan Goals to Promote Your Health * To prevent worsening of your condition and complications * To maintain your health at the optimal level Directions to Meet Your Goals Take your medications as prescribed Follow your dietary instruction Follow activity as directed Keep your appointments as scheduled Take your immunizations and boosters as scheduled If your symptoms worsen call your PCP, if no PCP go to Urgent Care Center or Emergency Room Smoking is Dangerous to Your Health. Avoid second hand smoke Call the 24-hour hour crisis hotline for domestic abuse at Theresa Perez Dec 31, 2016 12:53
[2016-12-31] MEDS ORDERED: GABAPENTIN 300 MG CAP PO SCH (13:00)
--- NOTE | 2016-12-31 14:55 | EKG ---
Date Performed: 12/30/2016 Time Performed: 23:02:20 PTAGE: 41 years EKG: Sinus rhythm NONSPECIFIC T-WAVE ABNORMALITY BORDERLINE ECG WARNING: DATA QUALITY MAY AFFECT INTERPRETATION PREVIOUS TRACING : 12/30/2016 18.39 Since previous tracing, no significant change noted DOCTOR: Aaron Antunez Interpretating Date/Time 12/31/2016 14:54:31
--- NOTE | 2016-12-31 14:59 | EKG ---
Date Performed: 12/30/2016 Time Performed: 18:39:13 PTAGE: 41 years EKG: Sinus rhythm LOW QRS VOLTAGE IN PRECORDIAL LEADS BORDERLINE ECG PREVIOUS TRACING : 12/30/2016 15.48 Since previous tracing, no significant change noted DOCTOR: Aaron Antunez Interpretating Date/Time 12/31/2016 14:57:25
--- NOTE | 2016-12-31 15:00 | EKG ---
Date Performed: 12/30/2016 Time Performed: 15:48:53 PTAGE: 41 years EKG: Sinus rhythm NORMAL ECG NO PREVIOUS TRACING Since previous tracing, no significant change noted DOCTOR: Aaron Antunez Interpretating Date/Time 12/31/2016 14:59:30
--- NOTE | 2016-12-31 15:03 | EKG ---
Date Performed: 12/31/2016 Time Performed: 01:49:23 PTAGE: 41 years EKG: Sinus rhythm NONSPECIFIC T-WAVE ABNORMALITY BORDERLINE ECG PREVIOUS TRACING : 12/30/2016 23.02 Since previous tracing, no significant change noted DOCTOR: Aaron Antunez Interpretating Date/Time 12/31/2016 15:01:41
== END 2016-12-31 15:10 | disposition home or self-care (01) ==
LOC: NEPE 15:51 → NEDA 22:09 → NEPGCP 23:40
DX: R07.89 Other chest pain (principal); I11.0 Hypertensive heart disease with heart failure; I50.9 Heart failure, unspecified; E78.5 Hyperlipidemia, unspecified; E78.00 Pure hypercholesterolemia, unspecified; G47.30 Sleep apnea, unspecified; J98.11 Atelectasis; F32.9 Major depressive disorder, single episode, unspecified; E28.2 Polycystic ovarian syndrome; M79.7 Fibromyalgia; R06.02 Shortness of breath; J45.909 Unspecified asthma, uncomplicated; R91.8 Other nonspecific abnormal finding of lung field; M25.569 Pain in unspecified knee; M54.9 Dorsalgia, unspecified; G89.29 Other chronic pain; E66.01 Morbid (severe) obesity due to excess calories; F17.210 Nicotine dependence, cigarettes, uncomplicated; Z79.899 Other long term (current) drug therapy; Z79.84 Long term (current) use of oral hypoglycemic drugs; Z86.711 Personal history of pulmonary embolism; Z82.49 Family history of ischemic heart disease and other diseases of the circulatory system
CPT/HCPCS: 71010; 71275; 80048; 81001; 82550; 83690; 83735; 83880; 84484; 85025; 85379; 85610; 85730; 93005; 99285; G0378; Q9967

== ENCOUNTER 2017-05-11 22:41 | Inpatient (IN) | payer OTHER ==
[~2017-05-11] VITALS: Ht 172.7 cm; Wt 226.0 kg
[~2017-05-11 22:41] MED LIST changes: -BACT800T5 PO; +BUPR150CR PO; -CEPH-460 PO; +CETI-1 PO; +CYCL10TA PO; -CYCL1TAB29 PO; +FURO1TAB62 PO; +K-TA10TA PO; +LOSA100T PO; +MEDR150I IM; -MELO-1 PO; +MELO15TA20 PO; -METO25TA3 PO; +METO50TA PO; +TRAZ50TA12 PO; -VESI5TAB PO; +VESI5TAB2 PO
[2017-05-11 22:48] VITALS: BP 106/61; PULSE 120; RESP 22; TEMP 99.3; O2SAT 94
[2017-05-11] MEDS ORDERED: RESP: ALBUTEROL 2.5 MG/IPRATROPIUM 0.5 MG NEB (SCH) INH ONE (23:00)
[2017-05-11] MEDS ORDERED: SODIUM CHLORID 0.9% 500 ML INJ 500 ML IV ONE (23:00)
[2017-05-11 23:03] VITALS: RESP 22; O2SAT 95
--- NOTE | 2017-05-11 23:05 | PD ---
HPI Chief Complaint: Respiratory Distress Time Seen by Provider: 22:48 Travel History International Travel<30 days: No Contact w/Intl Traveler<30days: No Traveled to known affect area: No History of Present Illness HPI The patient is a 42-year-old female who presents to the emergency department for shortness of breath. The patient states she recently travel to [place], became short of breath while she was in [place]. Initially the patient was seen in emergency department and told that she was short of breath because she was obese. She then return for lower extremity edema and had an ultrasound that was negative for DVT. The patient returned home today became more short of breath. The patient had a pulse oximetry at home which stated she was 75% on room air. Patient did call EMS when they arrived the patient's O2 sat was in the low 80s on room air. The patient does have a history of previous pulmonary embolism and was on Coumadin for several years, however, stopped taking Coumadin on her own. The patient does complain of shortness of breath with mild wheezing, does have a history tobacco use. The patient's last cigarette was approximately 9:30 PM. She denies any fever, chills, or sweats. She denies any personal history of congestive heart failure. Patient's symptoms are moderate, worse with exertion, and slightly alleviated with oxygen administration. The patient did receive Solu-Medrol 125 mg intravenously and 3 albuterol nebulizers prior to arrival. PFSH Past Medical History Hx Anticoagulant Therapy: Yes (WARFARIN - OFF X 1 MONTH) Depression: Yes Cardiac Catheterization: Yes Cardiovascular Problems: Yes (HTN, IRREGULAR HEARTBEAT) High Cholesterol: Yes Diminished Hearing: No Fibromyalgia: Yes Hypertension: Yes Musculoskeletal: Yes (chronic knee and back pain) Reproductive: Yes (pcos) Respiratory: Yes (SLEEP APNEA) Immunizations Current: Yes Sleep Apnea: Yes ?: Not : 1 Para: 1 Dilation and Curettage (D&C): Yes Past Surgical History Tonsillectomy: Yes Social History Alcohol Use: Yes (OCC ) Tobacco Use: Yes (5 cigs) Substance Use: No Allergies-Medications (Allergen,Severity, Reaction): Coded Allergies: Sulfa (Sulfonamide Antibiotics) (Unverified Allergy, Severe, SHORTNESS OF BREATH, HIVES, 05/11/17) egg (Unverified Allergy, Severe, Nausea/Vomiting, 05/11/17) celecoxib (Unverified Allergy, Intermediate, rash, 05/11/17) pseudoephedrine (Unverified Allergy, Intermediate, rash, 05/11/17) triprolidine (Unverified Allergy, Intermediate, rash, 05/11/17) adhesive (Unverified Allergy, Mild, Itching, 05/11/17) Reported Meds & Prescriptions Reported Meds & Active Scripts Active Reported Zyrtec (Cetirizine HCl) 10 Mg Tablet 10 Mg PO HS Losartan (Losartan Potassium) 100 Mg Tab 100 Mg PO DAILY K-Tab (Potassium Chloride) 10 Meq Tab 10 Meq PO DAILY Lasix (Furosemide) 20 Mg Tab 20 Mg PO DAILY Trazodone (Trazodone HCl) 50 Mg Tab 50 Mg PO HS Medroxyprogesterone Inj 150 Mg/Ml Inj 150 Mg IM Q90D Wellbutrin SR 12 HR (Bupropion HCl) 150 Mg Tab 150 Mg PO Q12HR Metoprolol Tartrate 50 Mg Tab 50 Mg PO BID Hydrocodone-Acetaminophen 10-325 mg Tab 1 Tab PO Q8HR PRN Flexeril (Cyclobenzaprine HCl) 10 Mg Tab 10 Mg PO TID Meloxicam 15 Mg Tab 15 Mg PO DAILY Citalopram (Citalopram Hydrobromide) 40 Mg Tab 40 Mg PO DAILY Vesicare (Solifenacin) 5 Mg Tab 5 Mg PO DAILY Metformin (Metformin HCl) 1,000 Mg Tab 1,000 Mg PO BIDPC With meals Gabapentin 300 Mg Cap 300 Mg PO TID Review of Systems Except as stated in HPI: all other systems reviewed are Neg General / Constitutional: No: Fever, Chills Cardiovascular: Positive: Dyspnea on exertion, No: Chest Pain or Discomfort Respiratory: Positive: Shortness of Breath, Wheezing Gastrointestinal: No: Nausea, Vomiting, Abdominal Pain Musculoskeletal: Positive: Edema Neurologic: No: Dizziness Physical Exam Narrative GENERAL: Awake, alert, pleasant 42-year-old female appears her stated age and appears to be in moderate respiratory distress. SKIN: Focused skin assessment warm/dry. HEAD: Atraumatic. Normocephalic. EYES: Pupils equal and round. No scleral icterus. No injection or drainage. ENT: No nasal bleeding or discharge. Mucous membranes pink and moist. NECK: Trachea midline. No JVD. CARDIOVASCULAR: Regular, tachycardic with a heart rate in the 120s. RESPIRATORY: Mild tachypnea with a respiratory rate of 24. Prolonged respiratory phase with diffuse wheezes. GASTROINTESTINAL: Abdomen soft, morbidly obese. MUSCULOSKELETAL: No obvious deformities. No clubbing. No cyanosis. Bilateral lower extremity pitting edema with mild erythema. NEUROLOGICAL: Awake and alert. No obvious cranial nerve deficits. Motor grossly within normal limits. Normal speech. PSYCHIATRIC: Appropriate mood and affect; insight and judgment normal. Data Data Last Documented VS Vital Signs Date Time Temp Pulse Resp B/P (MAP) Pulse Ox O2 Delivery O2 Flow Rate FiO2 05/12/17 00:12 95 Non-Rebreather 15.00 05/11/17 23:03 22 05/11/17 22:48 99.3 120 106/61 (76) Orders Orders Complete Blood Count With Diff (05/11/17 22:58) Comprehensive Metabolic Panel (05/11/17 22:58) B-Type Natriuretic Peptide (05/11/17 22:58) Act Partial Throm Time (Ptt) (05/11/17 22:58) Prothrombin Time / Inr (Pt) (05/11/17 22:58) Magnesium (Mg) (05/11/17 22:58) Ckmb (Isoenzyme) Profile (05/11/17 22:58) Troponin I (05/11/17 22:58) Iv Access Insert/Monitor (05/11/17 22:58) Ecg Monitoring (05/11/17 22:58) Oximetry (05/11/17 22:58) Oxygen Administration (05/11/17 22:58) Chest, Single Ap (05/11/17 22:58) Ct Pulmonary Angiogram (05/11/17 22:58) Sodium Chloride 0.9% Flush (Ns Flush) (05/11/17 23:00) Albuterol-Ipratropium Neb (Duoneb Neb) (05/11/17 23:00) Sodium Chlorid 0.9% 500 Ml Inj (Ns 500 M (05/11/17 23:00) CKMB (05/11/17 23:00) CKMB% (05/11/17 23:00) Admit Order (Ed Use Only) (05/12/17 01:29) Labs Laboratory Tests Test 05/11/17 23:00 White Blood Count 18.8 TH/MM3 Red Blood Count 4.25 MIL/MM3 Hemoglobin 12.0 GM/DL Hematocrit 36.3 % Mean Corpuscular Volume 85.5 FL Mean Corpuscular Hemoglobin 28.1 PG Mean Corpuscular Hemoglobin Concent 32.9 % Red Cell Distribution Width 15.4 % Platelet Count 326 TH/MM3 Mean Platelet Volume 7.6 FL Neutrophils (%) (Auto) 69.8 % Lymphocytes (%) (Auto) 18.9 % Monocytes (%) (Auto) 7.3 % Eosinophils (%) (Auto) 3.5 % Basophils (%) (Auto) 0.5 % Neutrophils # (Auto) 13.1 TH/MM3 Lymphocytes # (Auto) 3.5 TH/MM3 Monocytes # (Auto) 1.4 TH/MM3 Eosinophils # (Auto) 0.7 TH/MM3 Basophils # (Auto) 0.1 TH/MM3 CBC Comment DIFF FINAL Differential Comment Prothrombin Time 10.3 SEC Prothromb Time International Ratio 1.0 RATIO Activated Partial Thromboplast Time 25.0 SEC Blood Urea Nitrogen 17 MG/DL Creatinine 1.35 MG/DL Random Glucose 155 MG/DL Total Protein 7.1 GM/DL Albumin 3.2 GM/DL Calcium Level 8.5 MG/DL Magnesium Level 2.0 MG/DL Alkaline Phosphatase 82 U/L Aspartate Amino Transf (AST/SGOT) 28 U/L Alanine Aminotransferase (ALT/SGPT) 26 U/L Total Bilirubin 0.1 MG/DL Sodium Level 141 MEQ/L Potassium Level 3.9 MEQ/L Chloride Level 105 MEQ/L Carbon Dioxide Level 27.6 MEQ/L Anion Gap 8 MEQ/L Estimat Glomerular Filtration Rate 43 ML/MIN Total Creatine Kinase 787 U/L Creatine Kinase MB 2.0 NG/ML Creatine Kinase MB % 0.3 % Troponin I 0.30 NG/ML B-Type Natriuretic Peptide 220 PG/ML MDM Medical Decision Making Medical Screen Exam Complete: Yes Emergency Medical Condition: Yes Medical Record Reviewed: Yes Interpretation(s) EKG reveals sinus tachycardia with a heart rate of 118. RSR prime in V1. Nonspecific T wave changes. Last Impressions Chest X-Ray 05/11/17 3707 Signed Impressions: Service Date/Time: April 23:17 - CONCLUSION: Stable chest appearance. Bibasilar parenchymal opacities. Wing Carr MD Laboratory Tests Test 05/11/17 23:00 White Blood Count 18.8 TH/MM3 Red Blood Count 4.25 MIL/MM3 Hemoglobin 12.0 GM/DL Hematocrit 36.3 % Mean Corpuscular Volume 85.5 FL Mean Corpuscular Hemoglobin 28.1 PG Mean Corpuscular Hemoglobin Concent 32.9 % Red Cell Distribution Width 15.4 % Platelet Count 326 TH/MM3 Mean Platelet Volume 7.6 FL Neutrophils (%) (Auto) 69.8 % Lymphocytes (%) (Auto) 18.9 % Monocytes (%) (Auto) 7.3 % Eosinophils (%) (Auto) 3.5 % Basophils (%) (Auto) 0.5 % Neutrophils # (Auto) 13.1 TH/MM3 Lymphocytes # (Auto) 3.5 TH/MM3 Monocytes # (Auto) 1.4 TH/MM3 Eosinophils # (Auto) 0.7 TH/MM3 Basophils # (Auto) 0.1 TH/MM3 CBC Comment DIFF FINAL Differential Comment Prothrombin Time 10.3 SEC Prothromb Time International Ratio 1.0 RATIO Activated Partial Thromboplast Time 25.0 SEC Blood Urea Nitrogen 17 MG/DL Creatinine 1.35 MG/DL Random Glucose 155 MG/DL Total Protein 7.1 GM/DL Albumin 3.2 GM/DL Calcium Level 8.5 MG/DL Magnesium Level 2.0 MG/DL Alkaline Phosphatase 82 U/L Aspartate Amino Transf (AST/SGOT) 28 U/L Alanine Aminotransferase (ALT/SGPT) 26 U/L Total Bilirubin 0.1 MG/DL Sodium Level 141 MEQ/L Potassium Level 3.9 MEQ/L Chloride Level 105 MEQ/L Carbon Dioxide Level 27.6 MEQ/L Anion Gap 8 MEQ/L Estimat Glomerular Filtration Rate 43 ML/MIN Total Creatine Kinase 787 U/L Creatine Kinase MB 2.0 NG/ML Creatine Kinase MB % 0.3 % Troponin I 0.30 NG/ML B-Type Natriuretic Peptide 220 PG/ML CT pulmonary angiogram reveals bilateral pulmonary embolism Differential Diagnosis Differential diagnosis includes pulmonary embolism, congestive heart failure, cardiomyopathy, bronchitis, pneumonia, pleural effusion. Narrative Course IV was established, labs are drawn and sent, and the patient was placed on cardiac telemetry monitoring and continuous pulse oximetry monitoring. EKG was ordered and interpreted. Chest x-ray was obtained. The patient was administered one DuoNeb with IV fluids. CT pulmonary angiogram was ordered. Chest x-ray reveals atelectasis. Troponin is positive at 0.3. BNP is elevated at 220. Patient is tachycardic with a history of PE, therefore, CT pulmonary angiogram was performed which reveals pulmonary embolism. The patient appears to have right heart strain with elevated BNP and elevated troponin. Therefore, I discussed the patient with the on-call rubber compounder, Dr. Miner, as the patient will need to [place] [facility] [place] requiring nonrebreather and pulmonary embolism with right heart strain. Dr. Miner agrees with admission to the intensive care unit. I had a discussion with Dr. Michael who requests the patient receive TPA 50 mg over one hour, no bolus, and then be placed on a heparin drip after the TPA is finished with no bolus. I did have a discussion with the patient regarding the risk and benefits of TPA including bleeding versus decreased clot burden. The patient is agreeable to TPA. The patient will be [place] [facility] [place] Critical Care Narrative Aggregate critical care time was 40 minutes. Time to perform other separately billable procedures was not included in the critical care time. My time did not include minutes spent treating any other patients simultaneously or on activities that did not directly contribute to the patient's treatment. The services I provided to this patient were to treat and/or prevent clinically significant deterioration that could result in: Anoxia, hypoxia, arrhythmia, cardiomyopathy, . I provided critical care services requiring my management, as noted below: Chart data review, documentation time, medication orders and management, vital sign assessments/reviewing monitor data, ordering and reviewing lab tests, ordering and interpreting/reviewing x-rays and diagnostic studies, care of the patient and discussion of the patient with the admitting physicians. Sepsis Criteria SIRS Criteria (2 or more): Heart rate over 90, RR > 20 or PaCO2 < 32 Physician Communication Physician Communication I discussed the patient with Dr. Miner who agrees with [place] [facility] [place] Diagnosis Primary Impression: PE (pulmonary embolism) Condition: Stable Remigio Blackmon MD May 11, 2017 23:05
[2017-05-11 23:18] LABS: AUTOMATED NEUTROPHIL # 13.1 TH/MM3 (1.8-7.7); BASOPHIL # 0.1 TH/MM3 (0-0.2); BASOPHIL % 0.5 % (0.0-2.0); EOSINOPHIL # 0.7 TH/MM3 (0-0.4); EOSINOPHIL % 3.5 % (0.0-4.0); HEMATOCRIT 36.3 % (35.0-46.0); LYMPH % 18.9 % (9.0-44.0); LYMPHOCYTE # 3.5 TH/MM3 (1.0-4.8); MEAN CELL VOLUME 85.5 FL (80.0-100.0); MEAN CORPUSCULAR HEMOGLOBIN 28.1 PG (27.0-34.0); MEAN CORPUSCULAR HGB CONC 32.9 % (32.0-36.0); MEAN PLATELET VOLUME 7.6 FL (7.0-11.0); MONO % 7.3 % (0.0-8.0); MONOCYTE # 1.4 TH/MM3 (0-0.9); NEUT % 69.8 % (16.0-70.0); PLATELET COUNT 326 TH/MM3 (150-450); RED BLOOD COUNT 4.25 MIL/MM3 (4.00-5.30); RED CELL DISTRIBUTION WIDTH 15.4 % (11.6-17.2); WHITE BLOOD COUNT 18.8 TH/MM3 (4.0-11.0)
[2017-05-11 23:29] LABS: PROTHROMBIN TIME - PATIENT 10.3 SEC (9.8-11.6)
[2017-05-11 23:47] LABS: ALBUMIN 3.2 GM/DL (3.4-5.0); ALT (GPT) 26 U/L (10-53); AST (GOT) 28 U/L (15-37); BICARBONATE 27.6 MEQ/L (21.0-32.0); BLOOD UREA NITROGEN 17 MG/DL (7-18); CALCIUM 8.5 MG/DL (8.5-10.1); CHLORIDE 105 MEQ/L (98-107); CREATININE 1.35 MG/DL (0.50-1.00); GLOMERULAR FILTRATION RATE 43 ML/MIN (>89); GLUCOSE,RANDOM 155 MG/DL (74-106); SODIUM (NA) 141 MEQ/L (136-145)
[2017-05-11 23:51] LABS: ALKALINE PHOSPHATASE 82 U/L (45-117); TOTAL BILIRUBIN ADULT 0.1 MG/DL (0.2-1.0); TOTAL PROTEIN 7.1 GM/DL (6.4-8.2)
[2017-05-12] VITALS (19 sets, daily range): BP systolic 111–142; BP diastolic 57–70; PULSE 99–117; RESP 20–30; TEMP 98.1–98.9; O2SAT 92–98
--- NOTE | 2017-05-12 00:07 | RADRPT ---
EXAM DATE/TIME: 05/11/2017 23:17 [facility] COMPARISON: CHEST SINGLE AP, December 30, 2016, 18:03. CT PULMONARY ANGIOGRAM, December 30, 2016, 19:47. INDICATIONS : Patient complains of shortness of breath. MEDICAL HISTORY : None. SURGICAL HISTORY : Cardiac catheterization. ENCOUNTER: Initial ACUITY: 1 week PAIN SCORE: 0/10 LOCATION: chest FINDINGS: Mild bibasilar infiltrates or atelectasis, right worse than left similar to prior. No significant eff usion suspected. Cardiac contours are grossly stable. CONCLUSION: Stable chest appearance. Bibasilar parenchymal opacities. Wing Carr MD on May 12, 2017 at 0:04 Board Certified Radiologist. This report was verified electronically.
[2017-05-12] MEDS ORDERED: IOHEXOL 350 MG/ML 10 ML VIAL (for RAD DIAG) IVCONTRAST ONE (01:34)
[2017-05-12] MEDS: SODIUM CHLOR 0.9% 1000 ML INJ 1,000 ML IV SCH ×2 (01:41→13:36)
[2017-05-12] MEDS ORDERED: POTASSIUM CHLOR 20 MEQ PREMIX 100 ML IV PRN ×2 (01:45)
[2017-05-12] MEDS ORDERED: POTASSIUM PHOSPHATE MONOBASIC 500 MG TAB PO PRN (01:45)
[2017-05-12] MEDS ORDERED: POTASSIUM CHLORIDE 25 MEQ EFFERVESCENT TAB PO PRN (01:45)
[2017-05-12] MEDS ORDERED: CHLORHEXIDINE GLUCONATE 2 % 1 PACK (2 CLOTHS) TOP PRN (01:45)
[2017-05-12] MEDS ORDERED: DEXTROSE 50% IN WATER 50 ML VIAL(D50) IV PUSH PRN (01:45)
[2017-05-12] MEDS ORDERED: ONDANSETRON HCL 4 MG/2 ML VIAL IV PUSH PRN (01:45)
[2017-05-12] MEDS ORDERED: POTASSIUM PHOSPHATE MONOBASIC 500 MG TAB PO/TUBE PRN (01:45)
[2017-05-12] MEDS ORDERED: MAGNESIUM OXIDE 400 MG TAB PO PRN (01:45)
[2017-05-12] MEDS ORDERED: POTASSIUM PHOSPHATE INJ 30 MMOL in SODIUM CHLOR 0.9% 250 ML INJ 250 ML IV PRN (01:45)
[2017-05-12] MEDS ORDERED: POTASSIUM CHLOR 40 MEQ PREMIX 100 ML IV PRN ×2 (01:45)
[2017-05-12] MEDS ORDERED: MISCELLANEOUS NURSING INFORMATION XX SCH (01:45)
[2017-05-12] MEDS ORDERED: MAGNESIUM SULFATE INJ 2 GM in SODIUM CHLORIDE 0.9% INJ 96 ML IV PRN (01:45)
[2017-05-12] MEDS ORDERED: RESP: ALBUTEROL 2.5 MG/IPRATROPIUM 0.5 MG NEB (PRN) INH (01:45)
[2017-05-12] MEDS ORDERED: SODIUM PHOSPHATE INJ 30 MMOL in SODIUM CHLOR 0.9% 250 ML INJ 240 ML IV PRN (01:45)
[2017-05-12] MEDS ORDERED: MAGNESIUM SULFATE INJ 4 GM in SODIUM CHLORIDE 0.9% INJ 92 ML IV PRN (01:45)
--- NOTE | 2017-05-12 02:04 | RADRPT ---
EXAM DATE/TIME: 05/12/2017 01:06 [facility] COMPARISON: No previous studies available for comparison. INDICATIONS : Shortness of breath with hypoxia. IV CONTRAST: 75 cc Omnipaque 350 (iohexol) IV RADIATION DOSE: 29.47 CTDIvol (mGy) MEDICAL HISTORY : Hypertension. PE. SURGICAL HISTORY : None. ENCOUNTER: Initial ACUITY: 1 day PAIN SCALE: 0/10 LOCATION: chest TECHNIQUE: Volumetric scanning of the chest was performed using a pulmonary embolism protocol MIP images were re constructed. Using automated exposure control and adjustment of the mA and/or kV according to patien t size, radiation dose was kept as low as reasonably achievable to obtain optimal diagnostic quality images. DICOM format image data is available electronically for review and comparison. Follow-up recommendations for detected pulmonary nodules are based at a minimum on nodule size and pa tient risk factors according to Fleischner Society Guidelines. FINDINGS: PULMONARY ARTERIES: There is fairly extensive bilateral pulmonary embolism. Filling defects involve upper, middle and low er lobe segmental vessels. LUNGS: Mild airspace disease in the central right lung base. PLEURAE: There is no pleural thickening or pleural effusion. MEDIASTINUM: There is good visualization of the great vessels of the middle mediastinum. No evidence of mediastin al or hilar adenopathy/mass. MUSCULOSKELETAL: Within normal limits for patient age. MISCELLANEOUS: The visualized upper abdominal organs demonstrate no acute abnormality. CONCLUSION: Bilateral pulmonary embolism Wing Carr MD on May 12, 2017 at 1:58 Board Certified Radiologist. This report was verified electronically.
[2017-05-12] MEDS ORDERED: MISCELLANEOUS NURSING INFORMATION OTHER PRN (02:15)
[2017-05-12] MEDS ORDERED: ALTEPLASE INJ 50 MG in WATER STERILE FOR INJ 100 ML IV ONE (02:15)
[2017-05-12] MEDS: RESP: ALBUTEROL 2.5 MG/IPRATROPIUM 0.5 MG NEB (SCH) INH ×4 (03:25→20:10)
[2017-05-12] MEDS ORDERED: GABA600T PO (03:46)
[2017-05-12] MEDS ORDERED: POTA-163 PO (03:46)
[2017-05-12] MEDS ORDERED: AMLO5TAB2 PO (03:46)
[2017-05-12] MEDS ORDERED: FURO40TA PO (03:46)
[2017-05-12] MEDS ORDERED: NORT25CA PO (03:46)
--- NOTE | 2017-05-12 03:47 | HHI.HP ---
[facility] Service Critical Care Medicine Primary Care Physician Non-Staff Admission Diagnosis pulmonary embolism, hypoxia, dyspnea Diagnosis: Chief Complaint: shortness of breath Travel History International Travel<30 Days: No Contact w/Intl Traveler <30 Da: No Traveled to Known Affected Are: No History of Present Illness This is a super morbidly obese 42-year-old female with a past medical history of prior PEs but not on anticoagulation who presents with shortness of breath. She recently had a long car travel from [place] where she was immobile. She states that she is to be on anticoagulation for PEs, but she moved to [place] and did not follow up with a doctor here, and stop taking her anticoagulation. She states that over the last few days she's become worsening was short of breath. She also noticed bilateral lower extremity swelling which got worse. She states that she has a pulse oximeter at home and tonight she use it and she was 75% on room air. She was brought to the emergency department where she was found to be severely hypoxic and placed on a nonrebreather. CTA pulmonary angiogram demonstrated large pulmonary embolus. Troponins and BNP were elevated in a pattern consistent with right ventricular strain. I performed bedside critical care ultrasound which demonstrated severe right ventricular dysfunction and a positive Paez sign. I had a conversation with the patient where we specifically discussed the risks and benefits of lytic therapy , including the risk of major intracranial or major life-threatening GI bleeding , also the risks of sudden cardiac and long-term morbidity from World Health Organization class for pulmonary hypertension. After full explanation of the risks and benefits, the patient elected to undergo lytic therapy. 50 mg of TPA IV was given to the patient. Review of Systems Constitutional: DENIES: Fatigue, Fever, Chills Respiratory: COMPLAINS OF: Shortness of breath, DENIES: Cough, Wheezing, Hemoptysis, Sputum production Cardiovascular: COMPLAINS OF: Dyspnea on Exertion, Lower Extremity Edema, DENIES: Chest pain, Palpitations, Syncope, PND, Orthopnea, Claudication Gastrointestinal: DENIES: Abdominal pain, Black stools, Bloody stools, Constipation, Diarrhea, Nausea, Vomiting Neurologic: DENIES: Abnormal gait, Headache, Localized weakness, Paresthesias Psychiatric: DENIES: Anxiety, Confusion, Depression Past Family Social History Allergies: Coded Allergies: Sulfa (Sulfonamide Antibiotics) (Unverified Allergy, Severe, SHORTNESS OF BREATH, HIVES, 05/11/17) egg (Unverified Allergy, Severe, Nausea/Vomiting, 05/11/17) celecoxib (Unverified Allergy, Intermediate, rash, 05/11/17) pseudoephedrine (Unverified Allergy, Intermediate, rash, 05/11/17) triprolidine (Unverified Allergy, Intermediate, rash, 05/11/17) adhesive (Unverified Allergy, Mild, Itching, 05/11/17) Past Medical History Depression Hypertension Irregular heartbeat Hypercholesterolemia Fibromyalgia Chronic knee and back pain PCOS Sleep apnea Past Surgical History Tonsillectomy Reported Medications Zyrtec (Cetirizine HCl) 10 Mg Tablet 10 Mg PO HS Losartan (Losartan Potassium) 100 Mg Tab 100 Mg PO DAILY K-Tab (Potassium Chloride) 10 Meq Tab 10 Meq PO DAILY Lasix (Furosemide) 20 Mg Tab 20 Mg PO DAILY Trazodone (Trazodone HCl) 50 Mg Tab 50 Mg PO HS Medroxyprogesterone Inj 150 Mg/Ml Inj 150 Mg IM Q90D Wellbutrin SR 12 HR (Bupropion HCl) 150 Mg Tab 150 Mg PO Q12HR Metoprolol Tartrate 50 Mg Tab 50 Mg PO BID Hydrocodone-Acetaminophen 10-325 mg Tab 1 Tab PO Q8HR PRN Flexeril (Cyclobenzaprine HCl) 10 Mg Tab 10 Mg PO TID Meloxicam 15 Mg Tab 15 Mg PO DAILY Citalopram (Citalopram Hydrobromide) 40 Mg Tab 40 Mg PO DAILY Vesicare (Solifenacin) 5 Mg Tab 5 Mg PO DAILY Metformin (Metformin HCl) 1,000 Mg Tab 1,000 Mg PO BIDPC With meals Gabapentin 300 Mg Cap 300 Mg PO TID Active Ordered Medications See MAR Family History Reviewed with patient found to be noncontributory to her acute illness Social History Half pack per day times many years smoker, occasional alcohol use. Denies drugs of abuse. Physical Exam Vital Signs Vital Signs Date Time Temp Pulse Resp B/P (MAP) Pulse Ox O2 Delivery O2 Flow Rate FiO2 05/12/17 03:19 107 20 142/67 (92) 95 Non-Rebreather 15.00 05/12/17 02:30 112 22 112/67 (82) 94 Non-Rebreather 15.00 05/12/17 02:22 117 30 129/67 (87) 94 Non-Rebreather 15.00 05/12/17 01:37 92 Non-Rebreather 15.00 05/12/17 01:33 112 22 129/67 (87) 92 Non-Rebreather 15.00 05/12/17 00:12 95 Non-Rebreather 15.00 05/11/17 23:03 22 95 Non-Rebreather 15.00 05/11/17 23:03 95 Non-Rebreather 15.00 05/11/17 22:48 99.3 120 22 106/61 (76) 94 Physical Exam GENERAL: Super morbidly obese female, lying in bed, severe respiratory distress HEENT: Normocephalic. Atraumatic. Pupils equal, round, reactive, conjugate. Mucous membranes are moist NECK: Trachea is midline. Unable to assess JVD due to body habitus. CHEST: Labored. Tachypneic. Using accessory muscles to breathe. Nonrebreather in place. 91%. CARDIOVASCULAR: Tachycardic rate, regular rhythm. Sinus by telemetry ABDOMEN: Super morbidly obese. Soft, nontender, nondistended. No guarding. MUSCULOSKELETAL: Pulses 2+. 3+ peripheral edema. NEUROLOGICAL: RASS 0. CAM -. Follows commands. Laboratory Laboratory Tests Test 05/11/17 23:00 White Blood Count 18.8 Red Blood Count 4.25 Hemoglobin 12.0 Hematocrit 36.3 Mean Corpuscular Volume 85.5 Mean Corpuscular Hemoglobin 28.1 Mean Corpuscular Hemoglobin Concent 32.9 Red Cell Distribution Width 15.4 Platelet Count 326 Mean Platelet Volume 7.6 Neutrophils (%) (Auto) 69.8 Lymphocytes (%) (Auto) 18.9 Monocytes (%) (Auto) 7.3 Eosinophils (%) (Auto) 3.5 Basophils (%) (Auto) 0.5 Neutrophils # (Auto) 13.1 Lymphocytes # (Auto) 3.5 Monocytes # (Auto) 1.4 Eosinophils # (Auto) 0.7 Basophils # (Auto) 0.1 CBC Comment DIFF FINAL Differential Comment Prothrombin Time 10.3 Prothromb Time International Ratio 1.0 Activated Partial Thromboplast Time 25.0 Blood Urea Nitrogen 17 Creatinine 1.35 Random Glucose 155 Total Protein 7.1 Albumin 3.2 Calcium Level 8.5 Magnesium Level 2.0 Alkaline Phosphatase 82 Aspartate Amino Transf (AST/SGOT) 28 Alanine Aminotransferase (ALT/SGPT) 26 Total Bilirubin 0.1 Sodium Level 141 Potassium Level 3.9 Chloride Level 105 Carbon Dioxide Level 27.6 Anion Gap 8 Estimat Glomerular Filtration Rate 43 Total Creatine Kinase 787 Creatine Kinase MB 2.0 Creatine Kinase MB % 0.3 Troponin I 0.30 B-Type Natriuretic Peptide 220 Result Diagram: 05/11/17229905/11/172299 Imaging Last Impressions Chest X-Ray 05/11/172257 Signed Impressions: Service Date/Time: April 23:17 - CONCLUSION: Stable chest appearance. Bibasilar parenchymal opacities. Wing Carr MD CT Angiography 05/11/172257 Signed Impressions: Service Date/Time: Friday, May 12, 2017 01:06 - CONCLUSION: Bilateral pulmonary embolism Wing Carr MD Septic Shock Reassessment Septic shock perfusion: reassessment completed Caprini VTE Risk Assessment Caprini VTE Risk Assessment: Mod/High Risk (score >= 2) Caprini Risk Assessment Model Point Value = 1 Point Value = 2 Point Value = 3 Point Value = 5 Age 41-60 Minor surgery BMI > 25 kg/m2 Swollen legs Varicose veins or History of unexplained or recurrent spontaneous Oral contraceptives or hormone replacement Sepsis (< 1 month) Serious lung disease, including pneumonia (< 1 month) Abnormal pulmonary function Acute myocardial infarction Congestive heart failure (< 1 month) History of inflammatory bowel disease Medical patient at bed rest Age 61-74 Arthroscopic surgery Major open surgery (> 45 min) Laparoscopic surgery (> 45 min) Malignancy Confined to bed (> 72 hours) Immobilizing plaster cast Central venous access Age >= 75 History of VTE Family history of VTE Factor V Leiden Prothrombin [id number] Lupus anticoagulant Anticardiolipin antibodies Elevated serum homocysteine Heparin-induced thrombocytopenia Other congenital or acquired thrombophilia Stroke (< 1 month) Elective arthroplasty Hip, pelvis, or leg fracture Acute spinal cord injury (< 1 month) Prophylaxis Regimen Total Risk Factor Score Risk Level Prophylaxis Regimen 0-1 Low Early ambulation 2 Moderate Order ONE of the following: *Sequential Compression Device (SCD) *Heparin 5000 units SQ BID 3-4 Higher Order ONE of the following medications: *Heparin 5000 units SQ TID *Enoxaparin/Lovenox 40 mg SQ daily (WT < 150 kg, CrCl > 30 mL/min) *Enoxaparin/Lovenox 30 mg SQ daily (WT < 150 kg, CrCl > 10-29 mL/min) *Enoxaparin/Lovenox 30 mg SQ BID (WT < 150 kg, CrCl > 30 mL/min) AND/OR *Sequential Compression Device (SCD) 5 or more Highest Order ONE of the following medications: *Heparin 5000 units SQ TID (Preferred with Epidurals) *Enoxaparin/Lovenox 40 mg SQ daily (WT < 150 kg, CrCl > 30 mL/min) *Enoxaparin/Lovenox 30 mg SQ daily (WT < 150 kg, CrCl > 10-29 mL/min) *Enoxaparin/Lovenox 30 mg SQ BID (WT < 150 kg, CrCl > 30 mL/min) AND *Sequential Compression Device (SCD) Assessment and Plan Assessment and Plan Assessment: 42-year-old female with super morbid obesity and prior history of PE , noncompliant with and a coagulation therapy who presents with recurrent submassive pulmonary embolism with evidence of a ventricular strain based on bedside echocardiogram and cardiac biomarkers. Agree with decision to give half dose systemic TPA followed immediately by heparin infusion. She remains critically ill with evidence of cardiogenic shock, organ failure, and large clot burden pulmonary embolism. Plan by systems: Neurologic: Chronic pain syndrome Fibromyalgia Avoid long-acting sedatives Avoid high doses of opiates as this will worsen pulmonary vascular resistance and RV strain Respiratory: Submassive pulmonary embolism Acute hypoxic restaurant failure Obstructive sleep apnea Wean FiO2 for goal SPO2 greater than 92% Will attempt to avoid intubation if possible given the risk of cardiac arrest from intubating submassive PE with RV strain. Patient appears on his goal exam to be an anticipated difficult intubation Nebs Would consider using noninvasive positive pressure ventilation Cardiovascular: Submassive pulmonary embolism Right ventricular strain Cardiogenic shock 2-D echo Monitor vitals closely in ICU 50 mg TPA slowly over one hour, followed by heparin drip no bolus Renal: Acute kidney injury -- Strict I/Os Place Oliver for accurate I's and O's FEN/GI: Super morbid obesity ICU electrolyte protocol Nursing bedside swallow evaluation and advance diet Daily BMP Heme/ID: TPA followed by heparin drip No infectious etiology suspected this time Daily CBC Endocrine: Diabetes -- SSI, medium scale, every 6 Hold metformin Prophylaxis: GI Prophylaxis Pepcid DVT Prophylaxis -- SCDs TPA followed by heparin drip Lines: Peripheral IVs Oliver Dispo: Admit to ICU. Critically ill with high risk of sudden cardiac , organ failure, cardiogenic shock, hypoxic respiratory failure. This patient remains critically ill with one or more organ systems which are or may become a threat to life. I have spent in excess of 49 minutes discontinuously in the care and management of this patient. This time is exclusive of procedures, and includes, but is not limited to, evaluation of the patient, review of the medical record, discussions with family, consultants, nursing staff, or respiratory therapy, and documentation in the medical record. Anurag Miner MD May 12, 2017 03:47
[2017-05-12] MEDS: CHLORHEXIDINE GLUCONATE 2 % 1 PACK (2 CLOTHS) TOP SCH (04:00)
[2017-05-12] MEDS: HEPARIN-D5W 25,000 U/250 ML 250 ML IV PRN ×2 (04:58→17:39)
[2017-05-12] MEDS: INSULIN NovoLIN REGULAR SUPPLEMENTAL SCALE SQ SCH ×3 (06:00→17:14)
[2017-05-12] MEDS ORDERED: RESP: ALBUTEROL 2.5 MG/3 ML NEB (PRN) NEB (09:30)
[2017-05-12 09:44] LABS: INTERNATIONAL NORMALIZED RATIO 1.1 RATIO; PROTHROMBIN TIME - PATIENT 10.9 SEC (9.8-11.6)
[2017-05-12] MEDS: buPROPion HCL 150 MG SUSTAINED RELEASE TAB PO SCH ×2 (09:58→20:35)
[2017-05-12] MEDS: DOCUSATE SODIUM 50 MG/SENNA 8.6 MG TAB PO SCH ×2 (09:58→20:35)
[2017-05-12] MEDS: GABAPENTIN 300 MG CAP PO SCH ×3 (09:58→17:14)
[2017-05-12] MEDS: RESP: ALBUTEROL 2.5 MG/IPRATROPIUM 0.5 MG NEB (SCH) NEB ×4 (10:01→20:10)
[2017-05-12] MEDS: ACETAMINOPHEN 325 MG TAB PO PRN (10:10)
[2017-05-12] MEDS ORDERED: SODIUM CHLORID 0.9% 500 ML INJ 500 ML IV ONE (13:00)
[2017-05-12] MEDS ORDERED: ACETAMINOPHEN 1000 MG/100 ML 100 ML IV PRN (15:30)
--- NOTE | 2017-05-12 15:39 | ECHRPT ---
Indication: pulmonary embolism CONCLUSIONS The left ventricular systolic function is normal with an estimated ejection fraction in the range of 60-65%. Normal left ventricular size. Mild concentric left ventricular hypertrophy. No regional wall motion abnormalities are present. BP: 142 / 67 HR: 107 Rhythm: Sinus MEASUREMENTS (Male / Female) Normal Values Technical Quality:Very technically difficult study 2D ECHO LV Diastolic Diameter PLAX 3.6 cm 4.2 - 5.9 / 3.9 - 5.3 cm LV Systolic Diameter PLAX 2.4 cm IVS Diastolic Thickness 1.2 cm 0.6 - 1.0 / 0.6 - 0.9 cm LVPW Diastolic Thickness 1.2 cm 0.6 - 1.0 / 0.6 - 0.9 cm LV Relative Wall Thickness 0.7 RV Internal Dim ED PLAX 2.9 cm LVOT Diameter 2.1 cm M-MODE Aortic Root Diameter MM 3.3 cm AV Cusp Separation MM 2.2 cm DOPPLER AV Peak Velocity 222.0 cm/s AV Peak Gradient 19.7 mmHg AV Mean Gradient 10.0 mmHg AV Velocity Time Integral 38.2 cm LVOT Peak Velocity 165.0 cm/s LVOT Peak Gradient 10.9 mmHg LVOT Velocity Time Integral 30.8 cm LVOT Cardiac Index 3341.5 cm/minm AV Area Cont Eq vti 2.8 cm AV Area Cont Eq pk 2.6 cm MV Area PHT 5.8 cm LV E' Septal Velocity 9.0 cm/s TR Peak Velocity 232.0 cm/s TR Peak Gradient 21.5 mmHg Right Atrial Pressure 10.0 mmHg Pulmonary Artery Systolic Pressu 31.5 mmHg Right Ventricular Systolic Press 31.5 mmHg PV Peak Velocity 99.1 cm/s PV Peak Gradient 3.9 mmHg FINDINGS LEFT VENTRICLE The left ventricular systolic function is normal with an estimated ejection fraction in the range of 60-65%. Normal left ventricular size. Mild concentric left ventricular hypertrophy. No regional wall motion abnormalities are present. RIGHT VENTRICLE The right ventricle was not well visualized. LEFT ATRIUM The left atrial size is normal. RIGHT ATRIUM The right atrium is not well visualized. ATRIAL SEPTUM Normal atrial septal thickness without atrial level shunting by limited color doppler interrogation. AORTA The aortic root and proximal ascending aorta are normal in size on limited imaging. MITRAL VALVE Structurally normal mitral valve. No mitral valve stenosis or regurgitation. AORTIC VALVE Trileaflet aortic valve. No aortic valve stenosis or regurgitation. TRICUSPID VALVE Structurally normal tricuspid valve. No tricuspid valve stenosis or regurgitation. PULMONARY VALVE The pulmonary valve is not well visualized. VESSELS The inferior vena cava is normal in size. PERICARDIUM No pericardial effusion. Harriett Lee MD, FACC (Electronically Signed) Final Date:12 May 2017 15:38
[2017-05-12] MEDS: CITALOPRAM HYDROBROMIDE 40 MG TAB PO SCH (17:14)
[2017-05-12] MEDS: traZODone HCL 50 MG TAB PO SCH (20:35)
[2017-05-12] MEDS: CETIRIZINE HCL 10 MG TAB PO SCH (20:35)
[2017-05-12] MEDS: NYSTATIN 100,000 U/GM PWD 15 GM BTL TOPICAL SCH (21:45)
--- NOTE | 2017-05-12 22:01 | RADRPT ---
EXAM DATE/TIME: 05/12/2017 20:55 [facility] COMPARISON: No previous studies available for comparison. INDICATIONS : Pulmonary embolism. MEDICAL HISTORY : Hypercholesterolemia. Hypertension. . Pulmonary embolism. Irregular heartbeat. Anticoagulant therapy. Sleep apnea. PCOS. Fibromyalgia. Depression. SURGICAL HISTORY : Tonsillectomy. Dilation and curettage. ENCOUNTER: Subsequent ACUITY: 1 day PAIN SCORE: 4/10 LOCATION: Bilateral legs. TECHNIQUE: Venous ultrasound of the left and right leg was performed from the inguinal ligament to the proximal calf. Real-time, color Doppler and spectral tracing, compression and augmentation techniques were us ed. FINDINGS: RIGHT LEG: There is normal compressibility of the deep venous system from the inguinal region to the proximal ca lf. No echogenic clot is seen in the lumen of the common femoral, femoral, popliteal, and posterior tibial veins. There is a normal response of the venous system to proximal and distal augmentation an d respiration. LEFT LEG: There is normal compressibility of the deep venous system from the inguinal region to the proximal ca lf. No echogenic clot is seen in the lumen of the common femoral, femoral, popliteal, and posterior tibial veins. There is a normal response of the venous system to proximal and distal augmentation an d respiration. CONCLUSION: 1. The study is negative for deep venous thrombosis bilateral lower extremity. El Larson MD on May 12, 2017 at 21:58 Board Certified Radiologist. This report was verified electronically.
--- NOTE | 2017-05-12 22:55 | EKG ---
Date Performed: 05/11/2017 Time Performed: 22:51:40 PTAGE: 42 years EKG: SINUS TACHYCARDIA POSSIBLE RIGHT VENTRICULAR CONDUCTION DELAY NONSPECIFIC T-WAVE ABNORMALIT Y ABNORMAL RHYTHM ECG PREVIOUS TRACING : 12/31/2016 01.49 Compared to the previous tracing, rate has increased DOCTOR: Ole Goodman Interpretating Date/Time 05/12/2017 22:54:29
[2017-05-13] VITALS (23 sets, daily range): BP systolic 117–166; BP diastolic 53–77; PULSE 88–111; RESP 13–31; TEMP 97.9–99; O2SAT 92–100
[2017-05-13] MEDS: RESP: ALBUTEROL 2.5 MG/IPRATROPIUM 0.5 MG NEB (SCH) NEB ×4 (00:16→19:37)
[2017-05-13] MEDS: SODIUM CHLOR 0.9% 1000 ML INJ 1,000 ML IV SCH ×2 (03:00→13:51)
[2017-05-13] MEDS: RESP: ALBUTEROL 2.5 MG/IPRATROPIUM 0.5 MG NEB (SCH) INH ×4 (03:23→19:38)
[2017-05-13] MEDS: CHLORHEXIDINE GLUCONATE 2 % 1 PACK (2 CLOTHS) TOP SCH (04:00)
[2017-05-13] MEDS: INSULIN NovoLIN REGULAR SUPPLEMENTAL SCALE SQ SCH ×4 (06:00→17:53)
--- NOTE | 2017-05-13 06:31 | RADRPT ---
EXAM DATE/TIME: 05/13/2017 03:45 [facility] COMPARISON: CHEST SINGLE AP, May 11, 2017, 23:17. CT PULMONARY ANGIOGRAM, May 12, 2017, 1:06. INDICATIONS : Shortness of breath, possible pulmonary disease. MEDICAL HISTORY : None. SURGICAL HISTORY : None. ENCOUNTER: Subsequent ACUITY: 1 week PAIN SCORE: 0/10 LOCATION: Bilateral chest FINDINGS: Bilateral basilar infiltrates or atelectasis are grossly stable. Cardiac contours are unchanged with borderline heart size. CONCLUSION: No significant interval change Wing Carr MD on May 13, 2017 at 6:28 Board Certified Radiologist. This report was verified electronically.
[2017-05-13] MEDS: NYSTATIN 100,000 U/GM PWD 15 GM BTL TOPICAL SCH ×3 (06:40→20:34)
[2017-05-13] MEDS: HEPARIN-D5W 25,000 U/250 ML 250 ML IV PRN ×2 (06:44→17:52)
[2017-05-13 08:58] LABS: HEMATOCRIT 34.4 % (35.0-46.0); HEMOGLOBIN 11.1 GM/DL (11.6-15.3); MEAN CELL VOLUME 85.3 FL (80.0-100.0); MEAN CORPUSCULAR HEMOGLOBIN 27.5 PG (27.0-34.0); MEAN CORPUSCULAR HGB CONC 32.3 % (32.0-36.0); PLATELET COUNT 232 TH/MM3 (150-450); RED BLOOD COUNT 4.03 MIL/MM3 (4.00-5.30); RED CELL DISTRIBUTION WIDTH 15.3 % (11.6-17.2)
[2017-05-13] MEDS: GABAPENTIN 300 MG CAP PO SCH ×3 (09:16→17:53)
[2017-05-13] MEDS: CITALOPRAM HYDROBROMIDE 40 MG TAB PO SCH (09:16)
[2017-05-13 09:17] LABS: BICARBONATE 24.2 MEQ/L (21.0-32.0); CALCIUM 8.4 MG/DL (8.5-10.1); CREATININE 0.92 MG/DL (0.50-1.00); MAGNESIUM 2.3 MG/DL (1.5-2.5)
[2017-05-13] MEDS: DOCUSATE SODIUM 50 MG/SENNA 8.6 MG TAB PO SCH ×2 (09:17→20:32)
[2017-05-13] MEDS: buPROPion HCL 150 MG SUSTAINED RELEASE TAB PO SCH ×2 (09:17→20:32)
[2017-05-13 09:18] LABS: PHOSPHORUS 2.7 MG/DL (2.5-4.9)
[2017-05-13] MEDS: ACETAMINOPHEN 325 MG TAB PO PRN ×2 (12:16→20:32)
--- NOTE | 2017-05-13 15:43 | HHI.CCPN ---
Subjective Remarks/Hospital Course This is a super morbidly obese 42-year-old female with a past medical history of prior PEs but not on anticoagulation who presents with shortness of breath. She recently had a long car travel from [place] where she was immobile. She states that she is to be on anticoagulation for PEs, but she moved to [place] and did not follow up with a doctor here, and stop taking her anticoagulation. She states that over the last few days she's become worsening was short of breath. She also noticed bilateral lower extremity swelling which got worse. She states that she has a pulse oximeter at home and tonight she use it and she was 75% on room air. She was brought to the emergency department where she was found to be severely hypoxic and placed on a nonrebreather. CTA pulmonary angiogram demonstrated large pulmonary embolus. Troponins and BNP were elevated in a pattern consistent with right ventricular strain. I performed bedside critical care ultrasound which demonstrated severe right ventricular dysfunction and a positive Paez sign. I had a conversation with the patient where we specifically discussed the risks and benefits of lytic therapy , including the risk of major intracranial or major life-threatening GI bleeding , also the risks of sudden cardiac and long-term morbidity from World Health Organization class for pulmonary hypertension. After full explanation of the risks and benefits, the patient elected to undergo lytic therapy. 50 mg of TPA IV was given to the patient. Subjective: 05/13: The patient continues on heparin infusion, or respiratory difficulties. The patient continues on 2 L nasal cannula. The patient has a history of obstructive sleep apnea normally wears BiPAP at night however has not worn it in several months patient was instructed to wear BiPAP at night, and tolerated it well. The patient underwent ultrasound bilateral lower extremities, was noted not to have any DVTs diet is to be advanced today to heart healthy. Objective Vital Signs Date Time Temp Pulse Resp B/P (MAP) Pulse Ox O2 Delivery O2 Flow Rate FiO2 05/13/17 14:00 97 05/13/17 12:00 98.3 18 123/56 (78) 98 05/13/17 07:48 Nasal Cannula 4.00 05/13/17 03:23 35 Intake and Output 05/13/17 05/13/17 05/13/17 07:59 15:59 23:59 Intake Total 1676 ml 602 ml Output Total 500 ml Balance 1176 ml 602 ml Result Diagram: 05/13/17 0829 05/13/1729 Other Results Laboratory Tests Test 05/13/17 04:38 Blood Gas Puncture Site LT RADIAL Blood Gas Patient Temperature 98.6 Blood Gas HCO3 23 mmol/L (22-26) Blood Gas Base Excess -0.9 mmol/L (-2-2) Blood Gas Oxygen Saturation 95 % (90-100) Arterial Blood pH 7.41 (7.380-7.420) Arterial Blood Partial Pressure CO2 37 mmHg (38-42) Arterial Blood Partial Pressure O2 91 mmHg (61-120) Arterial Blood Oxygen Content 15.5 Vol % (12.0-20.0) Arterial Blood Carboxyhemoglobin 0.6 % (0-4) Arterial Blood Methemoglobin 1.3 % (0-2) Blood Gas Hemoglobin 11.5 G/DL (12.0-16.0) Oxygen Delivery Device CPAP Blood Gas Ventilator Setting +12 Blood Gas Inspired Oxygen 35 % Imaging Last Impressions Chest X-Ray 05/11/172257 Signed Impressions: Service Date/Time: April 23:17 - CONCLUSION: Stable chest appearance. Bibasilar parenchymal opacities. Wing Carr MD CT Angiography 05/11/172257 Signed Impressions: Service Date/Time: Friday, May 12, 2017 01:06 - CONCLUSION: Bilateral pulmonary embolism Wing Carr MD Objective Remarks GENERAL: Super morbidly obese female, lying in bed, awake alert and in no apparent distress HEENT: Normocephalic. Atraumatic. Pupils equal, round, reactive, conjugate. Mucous membranes are moist NECK: Trachea is midline. Unable to assess JVD due to body habitus. CHEST: Labored. Tachypneic. Using accessory muscles to breathe. Nonrebreather in place. 91%. CARDIOVASCULAR: Regular rate, regular rhythm. Telemetry normal sinus rhythm ABDOMEN: Super morbidly obese. Soft, nontender, nondistended. No guarding. MUSCULOSKELETAL: Pulses 2+. 3+ peripheral edema. NEUROLOGICAL: RASS 0. GCS 15. Follows commands. A/P Assessment and Plan Assessment: 42-year-old female with super morbid obesity and prior history of PE , noncompliant with and a coagulation therapy who presents with recurrent submassive pulmonary embolism with evidence of a ventricular strain based on bedside echocardiogram and cardiac biomarkers. Agree with decision to give half dose systemic TPA followed immediately by heparin infusion. She remains critically ill with evidence of cardiogenic shock, organ failure, and large clot burden pulmonary embolism. Plan by systems: Neurologic: Chronic pain syndrome Fibromyalgia Avoid long-acting sedatives Ofirmev 1 g every 6 hours 24 hours Respiratory: Submassive pulmonary embolism Acute hypoxic restaurant failure Obstructive sleep apnea Wean FiO2 for goal SPO2 greater than 92%. Currently on nasal cannula 2 L/m Will attempt to avoid intubation if possible given the risk of cardiac arrest from intubating submassive PE with RV strain. Patient appears on his goal exam to be an anticipated difficult intubation Duo nebs every 4 hours when necessary for wheezing BiPAP at night 04/28.35 Pulmonary consult for follow-up given the diagnoses obstructive sleep apnea BiPAP dependent Cardiovascular: Submassive pulmonary embolism Right ventricular strain Cardiogenic shock 05/13-2-D echo-ES 60-65% . No regional wall motion abnormalities Continue Heparin infusion and plan transition to Coumadin Renal: Acute kidney injury -- Strict I/Os Place Oliver for accurate I's and O's FEN/GI: Super morbid obesity ICU electrolyte protocol Heart Healthy diet Daily BMP Heme/ID: TPA followed by heparin drip No infectious etiology suspected this time Daily CBC Endocrine: Diabetes -- SSI, medium scale, every 6 Hold metformin Prophylaxis: GI Prophylaxis Pepcid DVT Prophylaxis -- SCDs Heparin drip Lines: Peripheral IVs Oliver Dispo: Level 3 Physician Nathalie Salcido MD May 13, 2017 15:43
--- NOTE | 2017-05-13 19:38 | MB ---
cc: ESTHER MAJOR DATE OF CONSULTATION 05/13/[address] Nathalie Christy REASON FOR CONSULTATION Evaluation of sleep apnea and pulmonary embolism. HISTORY OF PRESENT ILLNESS Ms. Rodriguez is a 42-year-old morbidly obese female with a BMI of 74. She has a history of deep venous thrombosis and pulmonary embolism about 3 1/2 years ago when she was living in [place]. She took the anticoagulation with coumadin for about a year. She moved over here, did not have an effusion, stopped taking the medication. She came to the hospital with worsening of shortness of breath for about a day or so. She was also feeling weak and had some dizziness. She did not have any fever or chills. No night sweats, no chest pain. The patient was seen in the emergency room. She had a CT of the chest done which showed bilateral pulmonary embolism. She received t-PA therapy with 15 mg IV infusion. Currently, she is weaned down to nasal cannula, feels much better. She has a history of sleep apnea. She has not been using CPAP machine because she could not get her mask. PAST MEDICAL HISTORY 1. Sleep apnea, 2. DVT, 3. Pulmonary embolism, 4. Morbid obesity, 5. Hypertension. MEDICATIONS Currently taking 1. Nystatin 2. Zyrtec 10 mg a day 3. Trazodone 50 mg a day. 4. Albuterol/Atrovent nebulizer treatment use. 5. Citalopram 40 mg. 6. Neurontin 300 mg three times a day ALLERGIES SULFA CELECOXIB ADHESIVE TAPE PSEUDOEPHEDRINE TRIPOLIDINE SOCIAL HISTORY She has a remote history of smoking. No alcohol use. 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 She has one daughter from her previous marriage. Now she is with a lesbian . REVIEW OF SYSTEMS She walks short distance. No seizures, stroke or epilepsy. No bleeding from any site. She does have hemmoroids. PHYSICAL EXAMINATION GENERAL: Moderately obese female not in acute distress. VITAL SIGNS: Blood pressure 134/67, heart rate 96, respirations 20, temperature 98.2. HEENT: Pupils are equal and react to light. Oral mucosa, nasal mucosa normal. JVP not raised. CHEST: Equal bilaterally. No rhonchi. CARDIAC: S1, S2 normal. ABDOMEN: Soft, nontender, nondistended. Bowel sounds are present EXTREMITIES: 1+ pedal edema. LOAD OUT PERSON: She is alert and oriented x3. No focal deficits. IMPRESSION 1. Bilateral pulmonary embolism, 2. History of DVT and pulmonary embolism in the past 3. Status post sleep apnea. 4. Morbid obesity 5. Hypertension 6. Obstructive sleep apnea. PLAN She will use C-PAP machine at nighttime. She is on heparin drip which will be converted to oral antibiotics. Supplement her oxygen. I discussed the risk and benefits of anticoagulation. Further treatment will depend on the course in the hospital. Thank you, Dr. Christy, for this consultation. MD ADAIR Mccann/ /6:07 PM /6:53 PM MTDD
[2017-05-13] MEDS: traZODone HCL 50 MG TAB PO SCH (20:32)
[2017-05-13] MEDS: CETIRIZINE HCL 10 MG TAB PO SCH (20:32)
[2017-05-13] MEDS: SODIUM CHLORIDE 0.9% FLUSH 10 ML FLUSH IVF PRN (20:34)
[2017-05-14] VITALS (20 sets, daily range): BP systolic 123–162; BP diastolic 55–88; PULSE 82–110; RESP 20–32; TEMP 98–99.8; O2SAT 35–100
[2017-05-14] MEDS: RESP: ALBUTEROL 2.5 MG/IPRATROPIUM 0.5 MG NEB (SCH) NEB ×5 (01:04→19:45)
[2017-05-14 01:44] LABS: AUTOMATED NEUTROPHIL # 10.6 TH/MM3 (1.8-7.7); BASOPHIL # 0.1 TH/MM3 (0-0.2); BASOPHIL % 0.4 % (0.0-2.0); EOSINOPHIL # 0.5 TH/MM3 (0-0.4); EOSINOPHIL % 3.4 % (0.0-4.0); HEMATOCRIT 31.8 % (35.0-46.0); HEMOGLOBIN 10.2 GM/DL (11.6-15.3); LYMPHOCYTE # 3.5 TH/MM3 (1.0-4.8); MEAN CORPUSCULAR HEMOGLOBIN 27.3 PG (27.0-34.0); MEAN CORPUSCULAR HGB CONC 32.1 % (32.0-36.0); MONO % 7.2 % (0.0-8.0); MONOCYTE # 1.1 TH/MM3 (0-0.9); PLATELET COUNT 253 TH/MM3 (150-450); RED BLOOD COUNT 3.74 MIL/MM3 (4.00-5.30); RED CELL DISTRIBUTION WIDTH 15.5 % (11.6-17.2); WHITE BLOOD COUNT 15.8 TH/MM3 (4.0-11.0)
[2017-05-14 02:07] LABS: CALCIUM 8.1 MG/DL (8.5-10.1); CREATININE 0.82 MG/DL (0.50-1.00)
[2017-05-14] MEDS: INSULIN NovoLIN REGULAR SUPPLEMENTAL SCALE SQ SCH ×4 (02:46→18:00)
[2017-05-14] MEDS: CHLORHEXIDINE GLUCONATE 2 % 1 PACK (2 CLOTHS) TOP SCH (04:00)
[2017-05-14] MEDS: RESP: ALBUTEROL 2.5 MG/IPRATROPIUM 0.5 MG NEB (SCH) INH ×2 (04:00→08:12)
[2017-05-14] MEDS: DOCUSATE SODIUM 50 MG/SENNA 8.6 MG TAB PO SCH ×2 (09:11→20:17)
[2017-05-14] MEDS: buPROPion HCL 150 MG SUSTAINED RELEASE TAB PO SCH ×2 (09:11→20:17)
[2017-05-14] MEDS: CITALOPRAM HYDROBROMIDE 40 MG TAB PO SCH (09:12)
[2017-05-14] MEDS: GABAPENTIN 300 MG CAP PO SCH ×2 (09:12→13:28)
[2017-05-14] MEDS ORDERED: diphenhydrAMINE HCL 50 MG/ML VIAL IV ONE (11:15)
[2017-05-14] MEDS: SODIUM CHLOR 0.9% 1000 ML INJ 1,000 ML IV SCH (14:01)
[2017-05-14] MEDS: NYSTATIN 100,000 U/GM PWD 15 GM BTL TOPICAL SCH ×2 (14:02→22:03)
--- NOTE | 2017-05-14 15:30 | HHI.PR ---
Subjective Remarks 42 YO Obese WF with Bilat PE,S/P TPA used CPAP last night C/O Burning feet SOB better On Heparin drip Objective Vital Signs Vital Signs Date Time Temp Pulse Resp B/P (MAP) Pulse Ox O2 Delivery O2 Flow Rate FiO2 05/14/17 14:00 97 05/14/17 12:00 97 05/14/17 12:00 98.2 97 27 153/86 (108) 95 05/14/17 10:00 102 05/14/17 10:00 102 23 148/88 (108) 93 05/14/17 09:00 110 26 142/55 (84) 91 05/14/17 08:13 94 Nasal Cannula 5.00 05/14/17 08:00 98.0 89 20 162/85 (110) 93 05/14/17 08:00 89 05/14/17 07:00 93 Nasal Cannula 4.00 05/14/17 07:00 82 23 158/72 (100) 93 05/14/17 06:00 90 05/14/17 04:09 35 05/14/17 04:00 99.0 83 20 134/79 (97) 94 05/14/17 04:00 83 05/14/17 02:00 92 05/14/17 01:05 94 35 05/14/17 00:00 99.8 95 20 123/68 (86) 94 05/14/17 00:00 95 05/13/17 23:25 95 35 05/13/17 22:00 98 05/13/17 20:00 98.9 102 20 144/76 (98) 92 05/13/17 20:00 102 05/13/17 20:00 97 Nasal Cannula 4.00 05/13/17 19:39 95 Nasal Cannula 4.00 05/13/17 18:00 98 05/13/17 18:00 98 20 154/75 (101) 94 05/13/17 17:00 96 25 153/73 (99) 96 05/13/17 16:00 96 05/13/17 16:00 98.2 96 20 134/67 (89) 96 I/O 05/13/17 05/13/17 05/13/17 05/14/17 05/14/17 05/14/17 07:00 15:00 23:00 07:00 15:00 23:00 Intake Total 1676 ml 602 ml 1834 ml 480 ml 1000 ml Output Total 500 ml 1300 ml 650 ml Balance 1176 ml 602 ml 534 ml -170 ml 1000 ml Intake Oral 180 ml 1180 ml 480 ml IV Total 1496 ml 602 ml 654 ml 1000 ml Output Urine Total 500 ml 1300 ml 650 ml Result Diagram: 05/14/1711905/14/17119 Objective Remarks GENERAL: Morbidly obese WF,NAD SKIN: Warm and dry. HEAD: Normocephalic. EYES: No scleral icterus. No injection or drainage. NECK: Supple, trachea midline. No JVD or lymphadenopathy. CARDIOVASCULAR: Regular rate and rhythm without murmurs, gallops, or rubs. RESPIRATORY: Breath sounds equal bilaterally. No accessory muscle use. GASTROINTESTINAL: Abdomen soft, non-tender, nondistended. MUSCULOSKELETAL: No cyanosis, or edema. BACK: Nontender without obvious deformity. No CVA tenderness. A/P Assessment and Plan Bilat PE S/P TPA JOE Neuropathy Morbid obesity PLAN: Heparin drip Will need oral anticoagulation, Coumadin or NOAC Use CPAP at night Supplement 02 Abhishek Ashton MD May 14, 2017 15:30
[2017-05-14] MEDS ORDERED: BISACODYL 10 MG SUPP RECTAL PRN (15:45)
[2017-05-14] MEDS ORDERED: LACTULOSE SYRUP 20 GM/30 ML CUP PO PRN (15:45)
[2017-05-14] MEDS: HEPARIN-D5W 25,000 U/250 ML 250 ML IV PRN ×2 (15:51→23:33)
--- NOTE | 2017-05-14 15:57 | HHI.CCPN ---
Subjective Remarks/Hospital Course This is a super morbidly obese 42-year-old female with a past medical history of prior PEs but not on anticoagulation who presents with shortness of breath. She recently had a long car travel from [place] where she was immobile. She states that she is to be on anticoagulation for PEs, but she moved to [place] and did not follow up with a doctor here, and stop taking her anticoagulation. She states that over the last few days she's become worsening was short of breath. She also noticed bilateral lower extremity swelling which got worse. She states that she has a pulse oximeter at home and tonight she use it and she was 75% on room air. She was brought to the emergency department where she was found to be severely hypoxic and placed on a nonrebreather. CTA pulmonary angiogram demonstrated large pulmonary embolus. Troponins and BNP were elevated in a pattern consistent with right ventricular strain. I performed bedside critical care ultrasound which demonstrated severe right ventricular dysfunction and a positive Paez sign. I had a conversation with the patient where we specifically discussed the risks and benefits of lytic therapy , including the risk of major intracranial or major life-threatening GI bleeding , also the risks of sudden cardiac and long-term morbidity from World Health Organization class for pulmonary hypertension. After full explanation of the risks and benefits, the patient elected to undergo lytic therapy. 50 mg of TPA IV was given to the patient. Subjective: 05/13: The patient continues on heparin infusion, or respiratory difficulties. The patient continues on 2 L nasal cannula. The patient has a history of obstructive sleep apnea normally wears BiPAP at night however has not worn it in several months patient was instructed to wear BiPAP at night, and tolerated it well. The patient underwent ultrasound bilateral lower extremities, was noted not to have any DVTs diet is to be advanced today to heart healthy. 05/14: The patient noted resistance to Heparin despite increasing dosage, unable to establish therapeutic level. Heparin protocol changed to rebolus dosing, prothrombotic studies ordered. Heme-Onc consulted, appreciated recommendations. Patient tolerating diet IV fluids discontinued. Patient complained of neuropathy left lateral lower extremity patient previously on gabapentin 600mg TID (at home), gabapentin 300 mg now increased to 400mg TID. Objective Vital Signs Date Time Temp Pulse Resp B/P (MAP) Pulse Ox O2 Delivery O2 Flow Rate FiO2 05/14/17 14:00 97 05/14/17 12:00 98.2 27 153/86 (108) 95 05/14/17 08:13 Nasal Cannula 5.00 05/14/17 01:05 35 Intake and Output 05/14/17 05/14/17 05/15/17 08:00 16:00 00:00 Intake Total 480 ml 1000 ml Output Total 650 ml Balance -170 ml 1000 ml Result Diagram: 05/14/17 0120 05/14/17 0120 Imaging Last Impressions Chest X-Ray 05/11/172257 Signed Impressions: Service Date/Time: April 23:17 - CONCLUSION: Stable chest appearance. Bibasilar parenchymal opacities. Wing Carr MD CT Angiography 05/11/172257 Signed Impressions: Service Date/Time: Friday, May 12, 2017 01:06 - CONCLUSION: Bilateral pulmonary embolism Wing Carr MD Objective Remarks GENERAL: Super morbidly obese female, lying in bed, awake alert and in no apparent distress HEENT: Normocephalic. Atraumatic. Pupils equal, round, reactive, conjugate. Mucous membranes are moist NECK: Trachea is midline. Unable to assess JVD due to body habitus. CHEST: Clear to auscultation, no accessory muscle movement. O2 sat 97% on 2 L nasal cannula CARDIOVASCULAR: Regular rate, regular rhythm. Telemetry normal sinus rhythm ABDOMEN: Super morbidly obese. Soft, nontender, nondistended. No guarding. MUSCULOSKELETAL: Pulses 2+. 3+ peripheral edema. NEUROLOGICAL: RASS 0. GCS 15. Follows commands. A/P Assessment and Plan Assessment: 42-year-old female with super morbid obesity and prior history of PE , noncompliant with and a coagulation therapy who presents with recurrent submassive pulmonary embolism with evidence of a ventricular strain based on bedside echocardiogram and cardiac biomarkers. Agree with decision to give half dose systemic TPA followed immediately by heparin infusion. She remains critically ill with evidence of cardiogenic shock, organ failure, and large clot burden pulmonary embolism. Plan by systems: Neurologic: Chronic pain syndrome Fibromyalgia Avoid long-acting sedatives Ofirmev 1 g every 6 hours 24 hours Gabapentin 400 mg 3 times a day( home dosing gabapentin 600 3 times a day) Respiratory: Submassive pulmonary embolism Acute hypoxic restaurant failure Obstructive sleep apnea Wean FiO2 for goal SPO2 greater than 92%. Currently on nasal cannula 2 LPM Patient appears on his goal exam to be an anticipated difficult intubation Duo nebs every 4 hours when necessary for wheezing BiPAP at night 04/28.35 at night Pulmonary consult for follow-up given the diagnoses obstructive sleep apnea BiPAP dependent Cardiovascular: Submassive pulmonary embolism Right ventricular strain Cardiogenic shock- resolved 05/13-2-D echo-ES 60-65% . No regional wall motion abnormalities Continue Heparin infusion - she remains subtherapeutic on the (no bolus) protocol .Heparin re-bolus protocol instituted . 05/14 Hematology oncology consulted 05/14 Prothrombotic studies ordered Renal: Acute kidney injury -- Strict I/Os Place Oliver for accurate I's and O's FEN/GI: Super morbid obesity ICU electrolyte protocol Heart Healthy diet Daily BMP Heme/ID: TPA followed by heparin drip No infectious etiology suspected this time Daily CBC Endocrine: Diabetes -- SSI, medium scale, every 6 Hold metformin Prophylaxis: GI Prophylaxis Pepcid DVT Prophylaxis -- SCDs Heparin drip Lines: Peripheral IVs Oliver Dispo: Level 3 Discussed with patient, family and OPERATIONS ADMINISTRATOR ( Jeana) at bedside Physician Nathalie Salcido MD May 14, 2017 15:57
[2017-05-14] MEDS ORDERED: HEPARIN SODIUM - IV 10,000 UNITS/10 ML VIAL IV PUSH PRN ×2 (16:15)
[2017-05-14 17:33] LABS: HEMATOCRIT 31.2 % (35.0-46.0); HEMOGLOBIN 10.5 GM/DL (11.6-15.3); MEAN CELL VOLUME 84.9 FL (80.0-100.0); MEAN CORPUSCULAR HEMOGLOBIN 28.6 PG (27.0-34.0); MEAN CORPUSCULAR HGB CONC 33.7 % (32.0-36.0); MEAN PLATELET VOLUME 8.5 FL (7.0-11.0); PLATELET COUNT 216 TH/MM3 (150-450); RED BLOOD COUNT 3.67 MIL/MM3 (4.00-5.30); RED CELL DISTRIBUTION WIDTH 15.4 % (11.6-17.2); WHITE BLOOD COUNT 15.5 TH/MM3 (4.0-11.0)
[2017-05-14] MEDS: GABAPENTIN 400 MG CAP PO SCH (18:34)
[2017-05-14] MEDS: MAGNESIUM HYDROXIDE SUSP 30 ML CUP PO PRN (18:37)
[2017-05-14] MEDS: CETIRIZINE HCL 10 MG TAB PO SCH (20:17)
[2017-05-14] MEDS: traZODone HCL 50 MG TAB PO SCH (20:17)
[2017-05-14 23:02] LABS: INTERNATIONAL NORMALIZED RATIO 1.1 RATIO; PROTHROMBIN TIME - PATIENT 11.1 SEC (9.8-11.6)
[2017-05-14] MEDS: ACETAMINOPHEN 325 MG TAB PO PRN (23:43)
[2017-05-15] VITALS (14 sets, daily range): BP systolic 123–135; BP diastolic 62–89; PULSE 84–105; RESP 18–30; TEMP 97.6–98.8; O2SAT 91–98
[2017-05-15] MEDS: RESP: ALBUTEROL 2.5 MG/IPRATROPIUM 0.5 MG NEB (SCH) NEB ×6 (00:50→21:38)
[2017-05-15] MEDS: CHLORHEXIDINE GLUCONATE 2 % 1 PACK (2 CLOTHS) TOP SCH (04:00)
[2017-05-15] MEDS: NYSTATIN 100,000 U/GM PWD 15 GM BTL TOPICAL SCH ×3 (06:00→20:06)
[2017-05-15] MEDS: INSULIN NovoLIN REGULAR SUPPLEMENTAL SCALE SQ SCH ×5 (06:00→23:53)
[2017-05-15 06:44] LABS: AUTOMATED NEUTROPHIL # 9.6 TH/MM3 (1.8-7.7); BASOPHIL % 0.2 % (0.0-2.0); EOSINOPHIL # 1.2 TH/MM3 (0-0.4); EOSINOPHIL % 8.3 % (0.0-4.0); HEMATOCRIT 32.9 % (35.0-46.0); HEMOGLOBIN 10.5 GM/DL (11.6-15.3); MEAN CELL VOLUME 83.7 FL (80.0-100.0); MEAN CORPUSCULAR HEMOGLOBIN 26.7 PG (27.0-34.0); MEAN CORPUSCULAR HGB CONC 31.9 % (32.0-36.0); MEAN PLATELET VOLUME 7.1 FL (7.0-11.0); MONO % 7.2 % (0.0-8.0); MONOCYTE # 1.1 TH/MM3 (0-0.9); NEUT % 64.3 % (16.0-70.0); PLATELET COUNT 266 TH/MM3 (150-450); RED BLOOD COUNT 3.93 MIL/MM3 (4.00-5.30); RED CELL DISTRIBUTION WIDTH 15.1 % (11.6-17.2); WHITE BLOOD COUNT 14.9 TH/MM3 (4.0-11.0)
[2017-05-15 07:04] LABS: ALBUMIN 2.7 GM/DL (3.4-5.0); ALT (GPT) 17 U/L (10-53); AST (GOT) 9 U/L (15-37); BICARBONATE 24.8 MEQ/L (21.0-32.0); BLOOD UREA NITROGEN 13 MG/DL (7-18); CALCIUM 8.5 MG/DL (8.5-10.1); CHLORIDE 109 MEQ/L (98-107); CREATININE 0.94 MG/DL (0.50-1.00); GLOMERULAR FILTRATION RATE 66 ML/MIN (>89); GLUCOSE,RANDOM 93 MG/DL (74-106); SODIUM (NA) 141 MEQ/L (136-145)
[2017-05-15 07:06] LABS: ALKALINE PHOSPHATASE 72 U/L (45-117); TOTAL BILIRUBIN ADULT 0.3 MG/DL (0.2-1.0); TOTAL PROTEIN 6.2 GM/DL (6.4-8.2)
[2017-05-15] MEDS: HEPARIN-D5W 25,000 U/250 ML 250 ML IV PRN (07:19)
[2017-05-15] MEDS: buPROPion HCL 150 MG SUSTAINED RELEASE TAB PO SCH ×2 (09:13→20:05)
[2017-05-15] MEDS: DOCUSATE SODIUM 50 MG/SENNA 8.6 MG TAB PO SCH ×2 (09:13→20:05)
[2017-05-15] MEDS: GABAPENTIN 400 MG CAP PO SCH ×3 (09:13→16:53)
[2017-05-15] MEDS: CITALOPRAM HYDROBROMIDE 40 MG TAB PO SCH (09:13)
--- NOTE | 2017-05-15 09:17 | MB ---
cc: FERNANDO KEN DATE OF CONSULTATION: 05/15/2017. REASON FOR CONSULTATION: Patient with recurrent pulmonary emboli, morbid obesity, difficulties with anticoagulation with heparin, and little or no venous access for future monitoring of Coumadin with venous blood draws. PATIENT PROFILE: The patient is a 42-year-old white female. She has been twice. She has one daughter. The patient was born in [place]. She has lived in [place] for the past 2-1/2 years. She smokes slightly less than a half-pack of cigarettes per day, and has done this for twenty years. She does not drink alcohol. She is currently residing with her daughter and her female spouse. HISTORY OF PRESENT ILLNESS: The patient is a 42-year-old female. She has had a longstanding history of morbid obesity. She had a pulmonary embolus approximately four years ago in [place]. She was treated with Lovenox and then Coumadin. She took Coumadin for approximately a year and a half. She has no peripheral venous access and would stick her fingers for blood samples and the Coumadin was adjusted accordingly. She came to this area and had difficulty finding a physician. She has not taken any Coumadin for approximately 2-1/2 years. She recently found a physician in [place], Dr. Anne Prasad. Her morbid obesity has been crippling. She uses a cane to get around the house. On a number of occasions, she attempted to have either bypass surgery, a gastric sleeve or plication. She was unable to do this as it was not covered by her insurance. She has sleep apnea. The mask has not fit well and she has not been able to use the mask recently. Slightly more than a week ago, she went to [place] for a family reunion. While in [place], she noted leg swelling bilaterally. On two occasions, she went to the emergency room and was not found to have a venous clot involving the lower extremities. She returned to this area and over the past several days developed increasing shortness of breath and had severe hypoxemia with an O2 sat at home of 75%. She had emergency transportation to [facility] and underwent a number of studies. A CT angiogram was done on 05/11 2017 showing extensive bilateral pulmonary emboli, filling defects involving the upper, middle and lower lobe segmental vessels. A lower extremity ultrasound was negative for venous thrombosis bilaterally. She was treated with tPA and she is doing better. She has been on increasing doses of heparin and has not had a therapeutic PTT. Her most recent PTT is 35. PAST SURGICAL HISTORY: 1. Tonsillectomy. 2. D&C. 3. Cardiac catheterization, which she tells me was normal. PAST MEDICAL HISTORY: 1. Morbid obesity since childhood. 2. Pulmonary embolus approximately four years ago and currently. 3. Sleep apnea. 4. Hypertension. 5. Osteoarthritis with pain in the back and knees. 6. Depression. 7. Fibromyalgia. ALLERGIES: CELEBREX. FAMILY HISTORY: Family history is notable for obesity, and in addition, the patient's father had a blood clot in his leg. The patient's mother at age 58 of an [place]. The patient's father is 67. The patient has a brother who is living. REVIEW OF SYSTEMS: Review of systems is notable for the recent shortness of breath, problems with mobility, lower back pain, pain in the knees and profound shortness of breath. Other problem is depression. LABORATORY TESTS: Hemoglobin 10.5, white count 14,000, platelets 266,000. Lytes, BUN, creatinine and liver function tests are normal. PHYSICAL EXAMINATION: GENERAL: The physical exam reveals a morbidly obese female. VITAL SIGNS: 02 is 92. She is on 4 liters. Pulse is 84. She is afebrile. Blood pressure 130/70. HEAD, EYES, EARS, NOSE, THROAT: Head is normocephalic. The sclerae and conjunctivae are unremarkable. Oropharynx normal. BREASTS: No masses. HEART: Regular rhythm. LUNGS: Clear. ABDOMEN: Abdomen morbidly obese. EXTREMITIES: Trace edema. The legs are doughy. MUSCULOSKELETAL: No obvious bone tenderness. NEUROLOGIC: No focal weakness. PSYCHIATRIC: The patient is appropriate. ASSESSMENT: 1. The patient is a morbidly obese female who would have benefited from some type of gastric surgery to deal with this disease, which eventually will be fatal. She was denied this because of problems with insurance. I hope at some point in the future this will be successfully revisited. 2. Recurrent pulmonary emboli. The patient needs long-term if not lifetime anticoagulation. She is at enormous risk of further PE given her immobility, weight, and two previous pulmonary emboli probably a result of her morbid obesity and inactivity. RECOMMENDATIONS: 1. There are a number of options. Subcutaneous Lovenox indefinitely would be extremely difficult. Coumadin has been a problem because she has not been able to obtain peripheral blood draws. Coumadin would still be a possibility, but she would need to do fingersticks. I believe one of the new oral anticoagulants would be preferable as compliance has been an issue for this woman. I would recommend rivaroxaban 15 milligrams p.o. twice a day for 21 days to be followed by rivaroxaban 20 milligrams daily indefinitely. The risks of life-threatening hemorrhage are less with this drug than with Coumadin, and it would not require the same level of monitoring, which is problematic for this woman. It would be simple to stop the heparin and begin the rivaroxaban. 2. She has overwhelming social issues in terms of accessing medical care. RECOMMENDATIONS: Case management needs to be involved. At some point, she needs to be re-evaluated for gastric bypass surgery. She would probably benefit from having a physician in this area, as it is extremely difficult for her to get to [place]. Case management will also need to reach out to her insurance company to try to obtain Xarelto, explaining the dire circumstances and the difficulties that would be inherent with Coumadin or Lovenox. She needs to stop smoking. The above has been discussed with Dr. Christy, who placed the consultation. MD JOANN Handy/BRIDGER /8:23 AM /8:44 AM [email or web address]
--- NOTE | 2017-05-15 10:29 | HHI.CCPN ---
Subjective Remarks/Hospital Course This is a super morbidly obese 42-year-old female with a past medical history of prior PEs but not on anticoagulation who presents with shortness of breath. She recently had a long car travel from [place] where she was immobile. She states that she is to be on anticoagulation for PEs, but she moved to [place] and did not follow up with a doctor here, and stop taking her anticoagulation. She states that over the last few days she's become worsening was short of breath. She also noticed bilateral lower extremity swelling which got worse. She states that she has a pulse oximeter at home and tonight she use it and she was 75% on room air. She was brought to the emergency department where she was found to be severely hypoxic and placed on a nonrebreather. CTA pulmonary angiogram demonstrated large pulmonary embolus. Troponins and BNP were elevated in a pattern consistent with right ventricular strain. I performed bedside critical care ultrasound which demonstrated severe right ventricular dysfunction and a positive aPez sign. I had a conversation with the patient where we specifically discussed the risks and benefits of lytic therapy , including the risk of major intracranial or major life-threatening GI bleeding , also the risks of sudden cardiac and long-term morbidity from World Health Organization class for pulmonary hypertension. After full explanation of the risks and benefits, the patient elected to undergo lytic therapy. 50 mg of TPA IV was given to the patient. Subjective: 05/13: The patient continues on heparin infusion, or respiratory difficulties. The patient continues on 2 L nasal cannula. The patient has a history of obstructive sleep apnea normally wears BiPAP at night however has not worn it in several months patient was instructed to wear BiPAP at night, and tolerated it well. The patient underwent ultrasound bilateral lower extremities, was noted not to have any DVTs diet is to be advanced today to heart healthy. 05/14: The patient noted resistance to Heparin despite increasing dosage, unable to establish therapeutic level. Heparin protocol changed to rebolus dosing, prothrombotic studies ordered. Heme-Onc consulted, appreciated recommendations. Patient tolerating diet IV fluids discontinued. Patient complained of neuropathy left lateral lower extremity patient previously on gabapentin 600mg TID (at home), gabapentin 300 mg now increased to 400mg TID. 05/15: The patient continues to be heparin resistant to despite increasing doses with reboluses, still subtherapeutic INR. Hematology oncology recommendations begin Xarelto twice a day, with case management consultation for outpatient dosing/and follow-up. Patient was placed on Xarelto this a.m., with twice a day dosing. The patient is resting comfortably no dyspnea, remains on O2 via nasal cannula at 2 L/minute Objective Vital Signs Date Time Temp Pulse Resp B/P (MAP) Pulse Ox O2 Delivery O2 Flow Rate FiO2 05/15/17 07:48 92 Nasal Cannula 4.00 05/15/17 06:00 89 05/15/17 04:00 98.8 20 132/70 (90) 05/15/17 00:00 35 Intake and Output 05/15/17 05/15/17 05/16/17 08:00 16:00 00:00 Intake Total 650 ml Output Total 1900 ml Balance -1250 ml Result Diagram: 05/15/1751905/15/17519 Imaging Last Impressions Chest X-Ray 05/11/172257 Signed Impressions: Service Date/Time: April 23:17 - CONCLUSION: Stable chest appearance. Bibasilar parenchymal opacities. Wing Carr MD CT Angiography 05/11/172257 Signed Impressions: Service Date/Time: Friday, May 12, 2017 01:06 - CONCLUSION: Bilateral pulmonary embolism Wing Carr MD Objective Remarks GENERAL: Super morbidly obese female, lying in bed, awake alert and in no apparent distress HEENT: Normocephalic. Atraumatic. Pupils equal, round, reactive, conjugate. Mucous membranes are moist NECK: Trachea is midline. Unable to assess JVD due to body habitus. CHEST: Clear to auscultation, no accessory muscle movement. O2 sat 97% on 2 L nasal cannula CARDIOVASCULAR: Regular rate, regular rhythm. Telemetry normal sinus rhythm ABDOMEN: Super morbidly obese. Soft, nontender, nondistended. No guarding. MUSCULOSKELETAL: Pulses 2+. 3+ peripheral edema. NEUROLOGICAL: RASS 0. GCS 15. Follows commands. A/P Assessment and Plan Assessment: 42-year-old female with super morbid obesity and prior history of PE , noncompliant with and a coagulation therapy who presents with recurrent submassive pulmonary embolism with evidence of a ventricular strain based on bedside echocardiogram and cardiac biomarkers. Agree with decision to give half dose systemic TPA followed immediately by heparin infusion. She remains critically ill with evidence of cardiogenic shock, organ failure, and large clot burden pulmonary embolism. Plan by systems: Neurologic: Chronic pain syndrome Fibromyalgia Avoid long-acting sedatives Tylenol for pain or fever Gabapentin 400 mg 3 times a day( home dosing gabapentin 600 3 times a day) Respiratory: Submassive pulmonary embolism Acute hypoxic restaurant failure Obstructive sleep apnea Wean FiO2 for goal SPO2 greater than 92%. Currently on nasal cannula 2 LPM Patient appears on his goal exam to be an anticipated difficult intubation Duo nebs every 4 hours when necessary for wheezing BiPAP at night 04/28.35 at night Pulmonary consult for follow-up given the diagnoses obstructive sleep apnea BiPAP dependent Cardiovascular: Submassive pulmonary embolism Right ventricular strain Cardiogenic shock- resolved 05/13-2-D echo-ES 60-65% . No regional wall motion abnormalities Continue Heparin infusion - she remains subtherapeutic on the (no bolus) protocol .Heparin re-bolus protocol instituted . 05/14 Hematology oncology- Dr. Davis-recommendations to initiate immediately Xarelto 15 mg twice a day 05/14 Prothrombotic studies ordered, pending Renal: Acute kidney injury -- Strict I/Os Place Oliver for accurate I's and O's FEN/GI: Super morbid obesity ICU electrolyte protocol Heart Healthy diet Daily BMP Heme/ID: Heparin resistance TPA followed initially by heparin drip No infectious etiology suspected this time Begin Xarelto 15 mg twice a day (F/U Hematology recommendations see note) Daily CBC Endocrine: Diabetes -- SSI, medium scale, every 6hrs Hold metformin Prophylaxis: GI Prophylaxis Pepcid DVT Prophylaxis -- SCDs Heparin drip Lines: Peripheral IVs Oliver Dispo: Level 2 Discussed with patient, family and LOAN TELLER ( Mirta) at bedside and Case management has been consulted, regarding acquisition and planning for Xarelto post discharge. Plan transfer to [facility] in a.m. Plan transfer to [facility] floor. Physician Nathalie Salcido MD May 15, 2017 10:29
[2017-05-15] MEDS: RIVAROXABAN 15 MG TAB PO SCH ×2 (11:01→20:36)
--- NOTE | 2017-05-15 14:21 | HHI.PR ---
Subjective Remarks 42 YO Obese WF with Bilat PE,S/P TPA used CPAP last night C/O Burning feet SOB better Started xarelto Objective Vital Signs Vital Signs Date Time Temp Pulse Resp B/P (MAP) Pulse Ox O2 Delivery O2 Flow Rate FiO2 05/15/17 12:00 92 05/15/17 12:00 97.6 92 30 135/81 (99) 96 05/15/17 10:00 102 05/15/17 08:00 86 05/15/17 08:00 97.9 86 19 127/62 (83) 93 05/15/17 07:48 92 Nasal Cannula 4.00 05/15/17 07:00 92 Nasal Cannula 4.00 05/15/17 06:00 89 05/15/17 04:00 87 05/15/17 04:00 98.8 87 20 132/70 (90) 97 05/15/17 03:43 91 Nasal Cannula 4.00 05/15/17 02:00 84 05/15/17 00:00 98.4 90 29 127/65 (85) 93 05/15/17 00:00 90 05/15/17 00:00 96 35 05/14/17 22:00 96 05/14/17 20:00 98.2 94 22 142/67 (92) 98 05/14/17 20:00 94 05/14/17 19:48 98 Nasal Cannula 4.00 05/14/17 19:00 96 Nasal Cannula 4.00 05/14/17 18:00 93 05/14/17 16:00 91 05/14/17 16:00 91 32 126/84 (98) 93 05/14/17 15:00 92 25 150/70 (96) 100 I/O 05/14/17 05/14/17 05/14/17 05/15/17 05/15/17 05/15/17 07:00 15:00 23:00 07:00 15:00 23:00 Intake Total 480 ml 1000 ml 1448 ml 400 ml 250 ml Output Total 650 ml 1500 ml 1900 ml 1400 ml Balance -170 ml 1000 ml -52 ml -1500 ml -1150 ml Intake Oral 480 ml 944 ml 400 ml IV Total 1000 ml 504 ml 250 ml Output Urine Total 650 ml 1500 ml 1900 ml 1400 ml # Bowel Movements 0 Result Diagram: 05/15/1751905/15/17519 Objective Remarks GENERAL: Morbidly obese WF,NAD SKIN: Warm and dry. HEAD: Normocephalic. EYES: No scleral icterus. No injection or drainage. NECK: Supple, trachea midline. No JVD or lymphadenopathy. CARDIOVASCULAR: Regular rate and rhythm without murmurs, gallops, or rubs. RESPIRATORY: Breath sounds equal bilaterally. No accessory muscle use. GASTROINTESTINAL: Abdomen soft, non-tender, nondistended. MUSCULOSKELETAL: No cyanosis, or edema. BACK: Nontender without obvious deformity. No CVA tenderness. A/P Assessment and Plan Bilat PE S/P TPA JOE Neuropathy Morbid obesity PLAN: Xarelto 15 mg po bid. Will need oral anticoagulation, Coumadin or NOAC Use CPAP at night Supplement 02 Abhishek Ashton MD May 15, 2017 14:21
[2017-05-15] MEDS: SENNOSIDES 8.6 MG TAB PO PRN (20:05)
[2017-05-15] MEDS: SODIUM CHLORIDE 0.9% FLUSH 10 ML FLUSH IVF PRN (20:05)
[2017-05-15] MEDS: MAGNESIUM HYDROXIDE SUSP 30 ML CUP PO PRN (20:05)
[2017-05-15] MEDS: CETIRIZINE HCL 10 MG TAB PO SCH (20:05)
[2017-05-15] MEDS: traZODone HCL 50 MG TAB PO SCH (20:06)
[2017-05-16] VITALS (9 sets, daily range): BP systolic 115–143; BP diastolic 63–82; PULSE 90–97; RESP 15–20; TEMP 96.3–97.6; O2SAT 92–98
[2017-05-16] MEDS: CHLORHEXIDINE GLUCONATE 2 % 1 PACK (2 CLOTHS) TOP SCH (00:06)
[2017-05-16] MEDS: RESP: ALBUTEROL 2.5 MG/IPRATROPIUM 0.5 MG NEB (SCH) NEB ×3 (00:10→08:05)
[2017-05-16] MEDS: NYSTATIN 100,000 U/GM PWD 15 GM BTL TOPICAL SCH ×3 (05:07→19:55)
[2017-05-16] MEDS: INSULIN NovoLIN REGULAR SUPPLEMENTAL SCALE SQ SCH ×3 (05:07→16:46)
[2017-05-16 05:50] LABS: HEMATOCRIT 36.1 % (35.0-46.0); HEMOGLOBIN 11.7 GM/DL (11.6-15.3); MEAN CELL VOLUME 83.5 FL (80.0-100.0); MEAN CORPUSCULAR HEMOGLOBIN 27.1 PG (27.0-34.0); MEAN CORPUSCULAR HGB CONC 32.4 % (32.0-36.0); MEAN PLATELET VOLUME 6.9 FL (7.0-11.0); PLATELET COUNT 281 TH/MM3 (150-450); RED BLOOD COUNT 4.32 MIL/MM3 (4.00-5.30); WHITE BLOOD COUNT 15.5 TH/MM3 (4.0-11.0)
[2017-05-16 06:13] LABS: BICARBONATE 26.1 MEQ/L (21.0-32.0); CALCIUM 8.8 MG/DL (8.5-10.1); CREATININE 0.94 MG/DL (0.50-1.00)
[2017-05-16] MEDS: buPROPion HCL 150 MG SUSTAINED RELEASE TAB PO SCH ×2 (08:53→19:50)
[2017-05-16] MEDS: GABAPENTIN 400 MG CAP PO SCH ×3 (08:53→16:43)
[2017-05-16] MEDS: RIVAROXABAN 15 MG TAB PO SCH ×2 (08:53→19:50)
[2017-05-16] MEDS: CITALOPRAM HYDROBROMIDE 40 MG TAB PO SCH (08:53)
[2017-05-16] MEDS: SENNOSIDES 8.6 MG TAB PO PRN (08:54)
[2017-05-16] MEDS: DOCUSATE SODIUM 50 MG/SENNA 8.6 MG TAB PO SCH ×2 (08:54→19:51)
--- NOTE | 2017-05-16 13:09 | HHI.PR ---
Subjective Remarks patient seen and evaluated for bilateral pulmonary embolism with hypoxemia. Patient's motivated for activity. Discussed with [facility] nursing team. Patient will need to remove Olievr and continue with TREATMENT FOR PE She is complaining of tingling in her legs which is worse over the last week and worse with lying down. She admits previous degenerative disc disease in the back Objective Vitals Vital Signs Date Time Temp Pulse Resp B/P (MAP) Pulse Ox O2 Delivery O2 Flow Rate FiO2 05/16/17 08:56 Nasal Cannula 4.00 Humidified 05/16/17 08:05 92 Nasal Cannula 5.00 05/16/17 08:00 97.6 97 15 128/75 (92) 93 05/16/17 04:23 96 Nasal Cannula 3.00 05/16/17 04:00 97.0 90 16 136/73 (94) 98 05/16/17 00:12 96 35 05/16/17 00:00 96.3 94 17 143/82 (102) 97 05/15/17 22:06 94 05/15/17 21:39 94 Nasal Cannula 4.00 05/15/17 20:00 98.4 90 18 131/89 (103) 98 05/15/17 17:26 Nasal Cannula 4.00 05/15/17 16:00 105 05/15/17 16:00 98.4 105 25 123/65 (84) 97 05/15/17 14:00 90 I/O 05/15/17 05/15/17 05/15/17 05/16/17 05/16/17 05/16/17 07:00 15:00 23:00 07:00 15:00 23:00 Intake Total 400 ml 250 ml 1270 ml 480 ml Output Total 1900 ml 1400 ml 1800 ml 900 ml Balance -1500 ml -1150 ml -530 ml -420 ml Intake Oral 400 ml 1270 ml 480 ml IV Total 250 ml Output Urine Total 1900 ml 1400 ml 1800 ml 900 ml # Bowel Movements 0 Result Diagram: 05/16/1753005/16/17530 Objective Remarks GENERAL: This is a well-nourished, morbidly obese woman well-developed patient, in no apparent distress. CARDIOVASCULAR: Regular rate and rhythm without murmurs, gallops, or rubs. RESPIRATORY: Clear to auscultation. Breath sounds equal bilaterally. No wheezes , rales, or rhonchi. GASTROINTESTINAL: Abdomen soft, non-tender, nondistended. Normal active bowel sounds MUSCULOSKELETAL: Extremities without clubbing, cyanosis, or edema. NEURO: Alert & Oriented x4 to person, place, time, situation. Moves all ext x4 A/P Problem List: (1) Morbid obesity with BMI of 60.0-69.9, adult ICD Code: E66.01 - Morbid obesity with body mass index of 60.0-69.9 in adult; Z68.44 - Body mass index (bmi) 60.0-69.9, adult Status: Acute Plan: Patient will benefit from outpatient evaluation for gastric bypass Continue lifestyle modification (2) PE (pulmonary embolism) ICD Code: I26.99 - Pulmonary embolism Status: Acute Plan: continue Xarelto Increase activity Consider O2 at home (3) Chronic back pain ICD Code: G89.29 - Other chronic pain; M54.9 - Chronic back pain Status: Acute Plan: Likely with paresthesias, continue Tylenol as needed Encourage activity Discharge Planning Home pending O2 status and ambulation status Request for PT/OT service Ni Silver MD May 16, 2017 13:09
[2017-05-16] MEDS: LACTULOSE SYRUP 20 GM/30 ML CUP PO SCH (13:42)
[2017-05-16] MEDS: POLYETHYLENE GLYCOL 17 GM PKG PO SCH (13:42)
[2017-05-16] MEDS: ACETAMINOPHEN 325 MG TAB PO PRN ×2 (13:43→19:50)
--- NOTE | 2017-05-16 17:27 | HHI.PR ---
Subjective Remarks 42 YO Obese WF with Bilat PE,S/P TPA used CPAP last night C/O Burning feet SOB better Started xarelto mild sob Objective Vital Signs Vital Signs Date Time Temp Pulse Resp B/P (MAP) Pulse Ox O2 Delivery O2 Flow Rate FiO2 05/16/17 12:00 97.4 91 18 119/69 (86) 95 05/16/17 08:56 Nasal Cannula 4.00 Humidified 05/16/17 08:05 92 Nasal Cannula 5.00 05/16/17 08:00 97.6 97 15 128/75 (92) 93 05/16/17 04:23 96 Nasal Cannula 3.00 05/16/17 04:00 97.0 90 16 136/73 (94) 98 05/16/17 00:12 96 35 05/16/17 00:00 96.3 94 17 143/82 (102) 97 05/15/17 22:06 94 05/15/17 21:39 94 Nasal Cannula 4.00 05/15/17 20:00 98.4 90 18 131/89 (103) 98 I/O 05/15/17 05/15/17 05/15/17 05/16/17 05/16/17 05/16/17 07:00 15:00 23:00 07:00 15:00 23:00 Intake Total 400 ml 250 ml 1270 ml 480 ml 720 ml Output Total 1900 ml 1400 ml 1800 ml 900 ml 1975 ml Balance -1500 ml -1150 ml -530 ml -420 ml -1255 ml Intake Oral 400 ml 1270 ml 480 ml 720 ml IV Total 250 ml Output Urine Total 1900 ml 1400 ml 1800 ml 900 ml 1975 ml # Bowel Movements 0 Result Diagram: 05/16/1753005/16/17530 Objective Remarks GENERAL: Morbidly obese WF,NAD SKIN: Warm and dry. HEAD: Normocephalic. EYES: No scleral icterus. No injection or drainage. NECK: Supple, trachea midline. No JVD or lymphadenopathy. CARDIOVASCULAR: Regular rate and rhythm without murmurs, gallops, or rubs. RESPIRATORY: Breath sounds equal bilaterally. No accessory muscle use. GASTROINTESTINAL: Abdomen soft, non-tender, nondistended. MUSCULOSKELETAL: No cyanosis, or edema. BACK: Nontender without obvious deformity. No CVA tenderness. A/P Assessment and Plan Bilat PE S/P TPA JOE Neuropathy Morbid obesity PLAN: Xarelto 15 mg po bid. Use CPAP at night Supplement if RA sat >90% Abhishek Ashton MD May 16, 2017 17:27
[2017-05-16] MEDS: traZODone HCL 50 MG TAB PO SCH (19:50)
[2017-05-16] MEDS: CETIRIZINE HCL 10 MG TAB PO SCH (19:50)
[2017-05-17] VITALS (7 sets, daily range): BP systolic 101–173; BP diastolic 59–85; PULSE 86–98; RESP 18–22; TEMP 95.6–97.5; O2SAT 91–94
[2017-05-17] MEDS: ACETAMINOPHEN 325 MG TAB PO PRN ×2 (04:41→09:02)
[2017-05-17] MEDS: INSULIN NovoLIN REGULAR SUPPLEMENTAL SCALE SQ SCH ×4 (04:44→17:20)
[2017-05-17] MEDS: NYSTATIN 100,000 U/GM PWD 15 GM BTL TOPICAL SCH ×3 (06:00→20:28)
[2017-05-17 07:11] LABS: HEMOGLOBIN 11.5 GM/DL (11.6-15.3); MEAN CELL VOLUME 83.8 FL (80.0-100.0); MEAN CORPUSCULAR HEMOGLOBIN 27.6 PG (27.0-34.0); MEAN CORPUSCULAR HGB CONC 32.9 % (32.0-36.0); MEAN PLATELET VOLUME 7.1 FL (7.0-11.0); PLATELET COUNT 314 TH/MM3 (150-450); RED BLOOD COUNT 4.17 MIL/MM3 (4.00-5.30); RED CELL DISTRIBUTION WIDTH 15.1 % (11.6-17.2); WHITE BLOOD COUNT 16.7 TH/MM3 (4.0-11.0)
[2017-05-17 07:27] LABS: BICARBONATE 28.4 MEQ/L (21.0-32.0); CALCIUM 8.8 MG/DL (8.5-10.1); CREATININE 0.94 MG/DL (0.50-1.00)
[2017-05-17] MEDS: LACTULOSE SYRUP 20 GM/30 ML CUP PO SCH (09:00)
[2017-05-17] MEDS: buPROPion HCL 150 MG SUSTAINED RELEASE TAB PO SCH ×2 (09:01→20:28)
[2017-05-17] MEDS: CITALOPRAM HYDROBROMIDE 40 MG TAB PO SCH (09:01)
[2017-05-17] MEDS: GABAPENTIN 400 MG CAP PO SCH ×3 (09:01→17:25)
[2017-05-17] MEDS: DOCUSATE SODIUM 50 MG/SENNA 8.6 MG TAB PO SCH ×2 (09:01→20:28)
[2017-05-17] MEDS: RIVAROXABAN 15 MG TAB PO SCH ×2 (09:02→20:27)
[2017-05-17] MEDS: POLYETHYLENE GLYCOL 17 GM PKG PO SCH (09:02)
[2017-05-17] MEDS ORDERED: WALKER/EXTENDED1 MIS (11:27)
[2017-05-17] MEDS ORDERED: BATH/SHOWER SEA1 MI1 (11:27)
--- NOTE | 2017-05-17 11:30 | HHI.PR ---
Subjective Remarks Patient seen in room. Out of bed to chair. Still complaining of left knee discomfort and some tingling. Reports a lot of joint pain and crepitus. Still no bowel movement. Seen by the physical therapy and occupational therapy team. Objective Vitals Vital Signs Date Time Temp Pulse Resp B/P (MAP) Pulse Ox O2 Delivery O2 Flow Rate FiO2 05/17/17 10:02 16 05/17/17 09:42 94 21 05/17/17 07:55 95.6 88 22 132/85 (101) 91 05/17/17 01:02 96.4 94 18 120/59 (79) 93 05/16/17 21:57 96.3 90 20 123/63 (83) 94 05/16/17 20:23 Nasal Cannula 4.00 05/16/17 16:00 96.3 93 16 115/64 (81) 95 05/16/17 12:00 97.4 91 18 119/69 (86) 95 I/O 05/16/17 05/16/17 05/16/17 05/17/17 05/17/17 05/17/17 07:00 15:00 23:00 07:00 15:00 23:00 Intake Total 480 ml 720 ml Output Total 900 ml 1975 ml Balance -420 ml -1255 ml Intake Oral 480 ml 720 ml Output Urine Total 900 ml 1975 ml # Voids 1 1 # Bowel Movements 0 0 Result Diagram: 05/17/17 0550 05/17/17 0550 Objective Remarks GENERAL: This is a well-nourished, morbidly obese woman well-developed patient, in no apparent distress. CARDIOVASCULAR: Regular rate and rhythm without murmurs, gallops, or rubs. RESPIRATORY: Clear to auscultation. Breath sounds equal bilaterally. No wheezes , rales, or rhonchi. GASTROINTESTINAL: Abdomen soft, non-tender, nondistended. Normal active bowel sounds MUSCULOSKELETAL: Left knee is warm, Extremities without clubbing, cyanosis, or edema. NEURO: Alert & Oriented x4 to person, place, time, situation. Moves all ext x4 A/P Problem List: (1) Morbid obesity with BMI of 60.0-69.9, adult ICD Code: E66.01 - Morbid obesity with body mass index of 60.0-69.9 in adult; Z68.44 - Body mass index (bmi) 60.0-69.9, adult Status: Acute (2) PE (pulmonary embolism) ICD Code: I26.99 - Pulmonary embolism Status: Acute Plan: s/p tpa continue Xarelto Increase activity Consider O2 at home hemoccult neg (3) Chronic back pain ICD Code: G89.29 - Other chronic pain; M54.9 - Chronic back pain Status: Acute Plan: Likely also with knee pain ? OA xray pending paresthesias, continue Tylenol as needed Encourage activity resume mobic Discharge Planning Home pending O2 status and ambulation status Request for PT/dme Ni Silver MD May 17, 2017 11:30
[2017-05-17] MEDS: LOSARTAN 50 MG TAB PO SCH (13:25)
[2017-05-17] MEDS: MELOXICAM 7.5 MG TAB PO SCH ×2 (13:25→20:27)
--- NOTE | 2017-05-17 13:38 | RADRPT ---
EXAM DATE/TIME: 05/17/2017 12:54 [place] COMPARISON: No previous studies available for comparison. INDICATIONS : Left knee pain, no known injury. MEDICAL HISTORY : Hypercholesterolemia. Hypertension. . Pulmonary embolism. Irregular heartbeat. Anticoagulant therapy. Sleep apnea. PCOS. Fibromyalgia. Depression. SURGICAL HISTORY : Tonsillectomy. Dilation and curettage. ENCOUNTER: Subsequent ACUITY: 2 days PAIN SCORE: 10/10 LOCATION: Left knee FINDINGS: A standard 4 view examination is obtained and demonstrates mild degenerative change in the medial com partment with mild joint space loss, sclerosis and spurring. There is minimal spurring of the patello femoral joint. There is no definite evidence of joint effusion or joint body. The soft tissues are un remarkable. CONCLUSION: Mild osteoarthritic change. Neo Marroquin MD on May 17, 2017 at 13:29 Board Certified Radiologist. This report was verified electronically.
[2017-05-17 14:50] LABS: CARDIOLIPIN IGG AB <9.4 GPL; CARDIOLIPIN IGM AB <9.4 MPL
--- NOTE | 2017-05-17 15:31 | HHI.PR ---
Subjective Remarks 42 YO Obese WF with Bilat PE,S/P TPA used CPAP last night C/O Burning feet SOB better Walked with PT, tired Up in chair. Objective Vital Signs Vital Signs Date Time Temp Pulse Resp B/P (MAP) Pulse Ox O2 Delivery O2 Flow Rate FiO2 05/17/17 12:00 96.0 89 18 115/59 (77) 94 05/17/17 10:02 16 05/17/17 09:42 94 21 05/17/17 07:55 95.6 88 22 132/85 (101) 91 05/17/17 01:02 96.4 94 18 120/59 (79) 93 05/16/17 21:57 96.3 90 20 123/63 (83) 94 05/16/17 20:23 Nasal Cannula 4.00 05/16/17 16:00 96.3 93 16 115/64 (81) 95 I/O 05/16/17 05/16/17 05/16/17 05/17/17 05/17/17 05/17/17 07:00 15:00 23:00 07:00 15:00 23:00 Intake Total 480 ml 720 ml Output Total 900 ml 1975 ml Balance -420 ml -1255 ml Intake Oral 480 ml 720 ml Output Urine Total 900 ml 1975 ml # Voids 1 1 # Bowel Movements 0 0 Result Diagram: 05/17/17 0550 05/17/17 0550 Objective Remarks GENERAL: Morbidly obese WF,NAD SKIN: Warm and dry. HEAD: Normocephalic. EYES: No scleral icterus. No injection or drainage. NECK: Supple, trachea midline. No JVD or lymphadenopathy. CARDIOVASCULAR: Regular rate and rhythm without murmurs, gallops, or rubs. RESPIRATORY: Breath sounds equal bilaterally. No accessory muscle use. GASTROINTESTINAL: Abdomen soft, non-tender, nondistended. MUSCULOSKELETAL: No cyanosis, or edema. BACK: Nontender without obvious deformity. No CVA tenderness. A/P Assessment and Plan Bilat PE S/P TPA JOE Neuropathy Morbid obesity PLAN: Xarelto 15 mg po bid. Use CPAP at night Supplement 02 Wean 02 if RA sat >90% 02 walk test Abhishek Ashton MD May 17, 2017 15:31
[2017-05-17] MEDS: CETIRIZINE HCL 10 MG TAB PO SCH (20:27)
[2017-05-17] MEDS: traZODone HCL 50 MG TAB PO SCH (20:27)
[2017-05-18] MEDS: INSULIN NovoLIN REGULAR SUPPLEMENTAL SCALE SQ SCH ×3 (00:05→11:08)
[2017-05-18 02:35] VITALS: O2SAT 94
[2017-05-18 03:51] LABS: ACTIVATED PROTEIN C RESISTANCE 4.1 ratio (> OR = 2.1); ANTI-THROMBIN III ACT 77 (80-120); DRVVT 1:1 MIX ND (CORRECTED); DRVVT CONFIRM ND (NEGATIVE); HEXAGONAL PHASE CONFIRM ND (NEGATIVE)
[2017-05-18 04:20] VITALS: BP 121/64; PULSE 92; RESP 18; TEMP 97; O2SAT 95
[2017-05-18] MEDS: NYSTATIN 100,000 U/GM PWD 15 GM BTL TOPICAL SCH ×2 (06:00→10:17)
[2017-05-18 06:17] LABS: HEMATOCRIT 35.4 % (35.0-46.0); HEMOGLOBIN 11.4 GM/DL (11.6-15.3); MEAN CELL VOLUME 84.9 FL (80.0-100.0); MEAN CORPUSCULAR HEMOGLOBIN 27.2 PG (27.0-34.0); MEAN CORPUSCULAR HGB CONC 32.1 % (32.0-36.0); MEAN PLATELET VOLUME 7.1 FL (7.0-11.0); PLATELET COUNT 329 TH/MM3 (150-450); RED BLOOD COUNT 4.17 MIL/MM3 (4.00-5.30); RED CELL DISTRIBUTION WIDTH 15.2 % (11.6-17.2); WHITE BLOOD COUNT 17.6 TH/MM3 (4.0-11.0)
[2017-05-18 06:48] LABS: BICARBONATE 24.9 MEQ/L (21.0-32.0); CALCIUM 8.6 MG/DL (8.5-10.1); CREATININE 1.02 MG/DL (0.50-1.00)
[2017-05-18 08:00] VITALS: BP 113/61; PULSE 88; RESP 16; TEMP 97.5; O2SAT 92
[2017-05-18] MEDS: LACTULOSE SYRUP 20 GM/30 ML CUP PO SCH (09:00)
[2017-05-18] MEDS: POLYETHYLENE GLYCOL 17 GM PKG PO SCH (09:00)
[2017-05-18] MEDS: DOCUSATE SODIUM 50 MG/SENNA 8.6 MG TAB PO SCH (10:01)
[2017-05-18] MEDS: LOSARTAN 50 MG TAB PO SCH (10:02)
[2017-05-18] MEDS: MELOXICAM 7.5 MG TAB PO SCH (10:02)
[2017-05-18] MEDS: RIVAROXABAN 15 MG TAB PO SCH (10:02)
[2017-05-18] MEDS: buPROPion HCL 150 MG SUSTAINED RELEASE TAB PO SCH (10:02)
[2017-05-18] MEDS: CITALOPRAM HYDROBROMIDE 40 MG TAB PO SCH (10:02)
[2017-05-18] MEDS: GABAPENTIN 400 MG CAP PO SCH ×2 (10:02→12:23)
[2017-05-18] MEDS ORDERED: XARE15TA PO (10:25)
--- NOTE | 2017-05-18 10:25 | HHI.DCPOC ---
Discharge Care Plan Diagnosis: (1) PE (pulmonary embolism) Goals to Promote Your Health * To prevent worsening of your condition and complications * To maintain your health at the optimal level Directions to Meet Your Goals Take your medications as prescribed Follow your dietary instruction Follow activity as directed Keep your appointments as scheduled Take your immunizations and boosters as scheduled If your symptoms worsen call your PCP, if no PCP go to Urgent Care Center or Emergency Room Smoking is Dangerous to Your Health. Avoid second hand smoke Call the 24-hour hour crisis hotline for domestic abuse at Ni Silver MD May 18, 2017 10:25
--- NOTE | 2017-05-18 10:30 | HHI.DS ---
Discharge Summary Admission Date May 12, 2017 at 01:31 Discharge Date: May 18, 2017 Admitting Diagnosis pulmonary embolism, hypoxia, dyspnea (1) Morbid obesity with BMI of 60.0-69.9, adult ICD Code: E66.01 - Morbid obesity with body mass index of 60.0-69.9 in adult; Z68.44 - Body mass index (bmi) 60.0-69.9, adult Status: Acute (2) PE (pulmonary embolism) ICD Code: I26.99 - Pulmonary embolism Status: Acute (3) Chronic back pain ICD Code: G89.29 - Other chronic pain; M54.9 - Chronic back pain Status: Acute Procedures TPA Brief History - From Admission This is a super morbidly obese 42-year-old female with a past medical history of prior PEs but not on anticoagulation who presents with shortness of breath. She recently had a long car travel from [place] where she was immobile. She states that she is to be on anticoagulation for PEs, but she moved to [place] and did not follow up with a doctor here, and stop taking her anticoagulation. She states that over the last few days she's become worsening was short of breath. She also noticed bilateral lower extremity swelling which got worse. She states that she has a pulse oximeter at home and tonight she use it and she was 75% on room air. She was brought to the emergency department where she was found to be severely hypoxic and placed on a nonrebreather. CTA pulmonary angiogram demonstrated large pulmonary embolus. Troponins and BNP were elevated in a pattern consistent with right ventricular strain. I performed bedside critical care ultrasound which demonstrated severe right ventricular dysfunction and a positive Paez sign. I had a conversation with the patient where we specifically discussed the risks and benefits of lytic therapy , including the risk of major intracranial or major life-threatening GI bleeding , also the risks of sudden cardiac and long-term morbidity from [employer] class for pulmonary hypertension. After full explanation of the risks and benefits, the patient elected to undergo lytic therapy. 50 mg of TPA IV was given to the patient. CBC/BMP: 05/18/17 0554 05/18/17 0554 Significant Findings Laboratory Tests Test 05/15/17 11:36 05/16/17 05:31 05/17/17 05:50 05/18/17 05:54 White Blood Count 15.5 TH/MM3 (4.0-11.0) 16.7 TH/MM3 (4.0-11.0) 17.6 TH/MM3 (4.0-11.0) Mean Platelet Volume 6.9 FL (7.0-11.0) Potassium Level 5.2 MEQ/L (3.5-5.1) Estimat Glomerular Filtration Rate 66 ML/MIN (>89) 66 ML/MIN (>89) 60 ML/MIN (>89) Hemoglobin 11.5 GM/DL (11.6-15.3) 11.4 GM/DL (11.6-15.3) Creatinine 1.02 MG/DL (0.50-1.00) Imaging Last Impressions Knee X-Ray 05/17/17 0000 Signed Impressions: Service Date/Time: Wednesday, May 17, 2017 12:54 - CONCLUSION: Mild osteoarthritic change. Neo Marroquin MD Chest X-Ray 05/13/17 0600 Signed Impressions: Service Date/Time: Saturday, May 13, 2017 03:45 - CONCLUSION: No significant interval change Wing Carr MD Lower Extremity Ultrasound 05/12/17 0000 Signed Impressions: Service Date/Time: Friday, May 12, 2017 20:55 - CONCLUSION: 1. The study is negative for deep venous thrombosis bilateral lower extremity. El Larson MD CT Angiography 05/11/17 2258 Signed Impressions: Service Date/Time: Friday, May 12, 2017 01:06 - CONCLUSION: Bilateral pulmonary embolism Wing Carr MD PE at Discharge GENERAL: This is a well-nourished, morbidly obese woman well-developed patient, in no apparent distress. CARDIOVASCULAR: Regular rate and rhythm without murmurs, gallops, or rubs. RESPIRATORY: Clear to auscultation. Breath sounds equal bilaterally. No wheezes , rales, or rhonchi. GASTROINTESTINAL: Abdomen soft, non-tender, nondistended. Normal active bowel sounds MUSCULOSKELETAL: Left knee is warm, Extremities without clubbing, cyanosis, or edema. NEURO: Alert & Oriented x4 to person, place, time, situation. Moves all ext x4 Pt update on day of discharge Patient seen today, knee pain improved, x-rays reviewed with patient. Xarelto without issue Discharge plans discussed Hospital Course Venous thrombolic embolic events before and has been unable to follow-up on Coumadin regimen with blood draws them was having also difficulty here with heparin. She has been started on Xarelto with the assistance of the hematology team. She did have some hypoxemia which resolved. Echocardiogram was within normal limits. She has osteoarthritis which improved with anti-inflammatories. Pt Condition on Discharge: Good Discharge Disposition: Discharge Home Discharge Time: <= 30 minutes Discharge Instructions DIET: Follow Instructions for: Low Fat Diet Activities you can perform: Regular-No Restrictions Follow up Referrals: PCP Follow-up - 1 Week New Medications: Bath/Shower Seat with Noe (Bath/Shower Seat with Noe) 1 Mis Mis EA .ROUTE DIRECTED, #1 Walker/Extended Frame (Walker/Extended Frame) 1 Mis Mis EA .ROUTE DIRECTED, #1 Rivaroxaban (Xarelto) 15 Mg Tab 15 MG PO BID for pe, #62 TAB Complete this Rx and follow-up with yourPCPfor further prescriptions. You need to take lifelong anticoagulation Continued Medications: Amlodipine (Amlodipine) 5 Mg Tab 5 MG PO DAILY for Blood Pressure Management, #30 TAB 0 Refills Bupropion HCl ER 12 HR (Wellbutrin SR 12 HR) 150 Mg Tab 150 MG PO Q12HR for Control Depression, TAB 0 Refills Cetirizine HCl (Zyrtec) 10 Mg Tablet 10 MG PO HS Citalopram (Citalopram) 40 Mg Tab 40 MG PO DAILY for Control Depression, #30 TAB 0 Refills Furosemide (Furosemide) 40 Mg Tab 40 MG PO DAILY, #30 TAB 0 Refills Gabapentin (Gabapentin) 600 Mg Tab 600 MG PO TID, #90 TAB 0 Refills Hydrocodone-Acetaminophen (Hydrocodone-Acetaminophen) 10-325 mg Tab 1 TAB PO Q8HR PRN for PAIN, TAB 0 Refills Losartan (Losartan) 100 Mg Tab 100 MG PO DAILY for Blood Pressure Management, #30 TAB 0 Refills Medroxyprogesterone Inj (Medroxyprogesterone Inj) 150 Mg/Ml Inj 150 MG IM Q90D for Contraception, #1 VIAL 0 Refills Meloxicam (Meloxicam) 15 Mg Tab 15 MG PO DAILY for Arthritis Pain, #30 TAB 0 Refills Metformin (Metformin) 1,000 Mg Tab 1000 MG PO BIDPC for Blood Sugar Management, #60 TAB 0 Refills With meals Metoprolol Tartrate (Metoprolol Tartrate) 50 Mg Tab 50 MG PO BID, #60 TAB 0 Refills Nortriptyline (Nortriptyline) 25 Mg Cap 25 MG PO HS for Depression Control, #30 CAP 0 Refills Potassium Chloride ER (Potassium Chloride ER) 20 Meq Tab 20 MEQ PO DAILY for Electrolyte Replacement, #30 TAB 0 Refills Solifenacin (Vesicare) 5 Mg Tab 5 MG PO DAILY for Urinary Symptom Managemen, #30 TAB 0 Refills Trazodone (Trazodone) 50 Mg Tab 50 MG PO HS for Control Depression, #30 TAB 0 Refills Ni Silver MD May 18, 2017 10:30
[2017-05-18 10:56] VITALS: O2SAT 95
[2017-05-18 11:52] LABS: FACTOR VIII(8) ACTIVITY 88 (50-180)
[2017-05-18 12:00] VITALS: BP 106/79; PULSE 85; RESP 16; TEMP 96.6; O2SAT 93
[2017-05-19 03:49] LABS: PHOSPHATIDYLSERINE AB IGA LESS THAN 20.0 U/mL (< 20.0); PHOSPHATIDYLSERINE AB IGG LESS THAN 10.0 U/mL (< 11.0); PHOSPHATIDYLSERINE AB IGM LESS THAN 25.0 U/mL (< 25.0)
[2017-05-20 07:50] LABS: BETA2-GLYCOPROTEIN IGA <9 SAU (< OR = 20); BETA2-GLYCOPROTEIN IGG <9 SGU (< OR = 20); BETA2-GLYCOPROTEIN IGM <9 SMU (< OR = 20)
[2017-05-23 10:45] LABS: PROTEIN C ACTIVITY 99 % (70 - 150); PROTEIN S ACTIVITY 131 % (50 - 160)
== END 2017-05-18 16:23 | disposition home or self-care (01) | DRG 175 ==
LOC: NEPE 22:41 → NEDA 05-12 01:31 → HIMN 05-12 04:25 → N06A 05-15 17:08
PROVIDERS: ADMIT Hospitalist; ATTEND Hospitalist
DX: I26.99 Other pulmonary embolism without acute cor pulmonale (principal); J96.01 Acute respiratory failure with hypoxia; R57.0 Cardiogenic shock; Z68.45 Body mass index [BMI] 70 or greater, adult; N17.9 Acute kidney failure, unspecified; J98.11 Atelectasis; G47.33 Obstructive sleep apnea (adult) (pediatric); E66.01 Morbid (severe) obesity due to excess calories; G89.4 Chronic pain syndrome; M79.7 Fibromyalgia; I10 Essential (primary) hypertension; E28.2 Polycystic ovarian syndrome; E78.00 Pure hypercholesterolemia, unspecified; I51.9 Heart disease, unspecified; E11.42 Type 2 diabetes mellitus with diabetic polyneuropathy; M15.9 Polyosteoarthritis, unspecified; F17.210 Nicotine dependence, cigarettes, uncomplicated; F32.9 Major depressive disorder, single episode, unspecified; Z79.84 Long term (current) use of oral hypoglycemic drugs; Z86.711 Personal history of pulmonary embolism; Z88.2 Allergy status to sulfonamides; Z91.012 Allergy to eggs; Z91.14 Patient's other noncompliance with medication regimen; Z91.19 Patient's noncompliance with other medical treatment and regimen
CPT/HCPCS: 36600; 71010; 71275; 73564; 76937; 80048; 80053; 81240; 81241; 81291; 82272; 82550; 82552; 82805; 82948; 83090; 83735; 83880; 84100; 84484; 85025; 85027; 85240; 85300; 85303; 85306; 85307; 85610; 85613; 85730; 86146; 86147; 86148; 87641; 93005; 93306; 93970; 94002; 94003; 94150; 94620; 94640; 94664; 94667; 94668; 96360; J1200; J1644; J2997; J7030; J7040; Q9967

== ENCOUNTER 2017-10-01 13:13 | Emergency (ER) | payer MEDICAID, OTHER ==
[~2017-10-01 13:13] MED LIST changes: +AMLO5TAB2 PO; +BATH/SHOWER SEA1 MI1; -CYCL10TA PO; -FURO1TAB62 PO; +FURO40TA PO; -GABA300C5 PO; +GABA600T PO; -K-TA10TA PO; +NORT25CA PO; +POTA-163 PO; +WALKER/EXTENDED1 MIS; +XARE15TA PO
[2017-10-01 13:37] VITALS: BP 140/67; PULSE 92; RESP 22; TEMP 97.3; O2SAT 95
--- NOTE | 2017-10-01 14:04 | PD ---
HPI Chief Complaint: Edema Time Seen by Provider: 13:43 Travel History International Travel<30 days: No Contact w/Intl Traveler<30days: No Traveled to known affect area: No History of Present Illness HPI The patient was seen and examined in the presence of the nurse. This patient complains of some dyspnea on exertion. She has some congestion and cough. She has been bringing up some colored phlegm and other times clear phlegm. No fever. Not having any chest pain. She has chronic leg edema. She is on water pills. She reports her weight is 510 pounds. She is on Coumadin for PE. She quit smoking 5 months ago. Symptom severity is moderate. Worse with exertion. No alleviating factors. Duration is gradual worsening over 4-5 days PFSH Past Medical History Hx Anticoagulant Therapy: Yes (WARFARIN - OFF X 1 MONTH) Depression: Yes Cardiac Catheterization: Yes Cardiovascular Problems: Yes (HTN, IRREGULAR HEARTBEAT) High Cholesterol: Yes Diabetes: No Diminished Hearing: No Fibromyalgia: Yes Hypertension: Yes Musculoskeletal: Yes (chronic knee and back pain) Reproductive: Yes (pcos) Respiratory: Yes (SLEEP APNEA) Immunizations Current: Yes Sleep Apnea: Yes : 1 Para: 1 Dilation and Curettage (D&C): Yes Past Surgical History Gynecologic Surgery: Yes Tonsillectomy: Yes Social History Alcohol Use: Yes (OCC ) Tobacco Use: Yes (5 cigs) Substance Use: No Allergies-Medications (Allergen,Severity, Reaction): Coded Allergies: Sulfa (Sulfonamide Antibiotics) (Unverified Allergy, Severe, SHORTNESS OF BREATH, HIVES, 05/11/17) egg (Unverified Allergy, Severe, Nausea/Vomiting, 05/11/17) celecoxib (Unverified Allergy, Intermediate, rash, 05/11/17) pseudoephedrine (Unverified Allergy, Intermediate, rash, 05/11/17) triprolidine (Unverified Allergy, Intermediate, rash, 05/11/17) adhesive (Unverified Allergy, Mild, Itching, 05/11/17) Reported Meds & Prescriptions Reported Meds & Active Scripts Active Ventolin Hfa 18 GM Inh (Albuterol Sulfate) 90 Mcg/Act Aer 1 Puff INH Q4H PRN Doxycycline Hyclate 100 Mg Cap 100 Mg PO BID Xarelto (Rivaroxaban) 15 Mg Tab 15 Mg PO BID Complete this Rx and follow-up with yourPCPfor further prescriptions. You need to take lifelong anticoagulation Bath/Shower Seat with Noe (Device) 1 Mis Mis Ea .ROUTE DIRECTED Walker/Extended Frame (Device) 1 Mis Mis Ea .ROUTE DIRECTED Reported Potassium Chloride ER (Potassium Chloride) 20 Meq Tab 20 Meq PO DAILY Furosemide 40 Mg Tab 40 Mg PO DAILY Amlodipine (Amlodipine Besylate) 5 Mg Tab 5 Mg PO DAILY Nortriptyline (Nortriptyline HCl) 25 Mg Cap 25 Mg PO HS Gabapentin 600 Mg Tab 600 Mg PO TID Zyrtec (Cetirizine HCl) 10 Mg Tablet 10 Mg PO HS Losartan (Losartan Potassium) 100 Mg Tab 100 Mg PO DAILY Trazodone (Trazodone HCl) 50 Mg Tab 50 Mg PO HS Medroxyprogesterone Inj 150 Mg/Ml Inj 150 Mg IM Q90D Wellbutrin SR 12 HR (Bupropion HCl) 150 Mg Tab 150 Mg PO Q12HR Metoprolol Tartrate 50 Mg Tab 50 Mg PO BID Hydrocodone-Acetaminophen 10-325 mg Tab 1 Tab PO Q8HR PRN Meloxicam 15 Mg Tab 15 Mg PO DAILY Citalopram (Citalopram Hydrobromide) 40 Mg Tab 40 Mg PO DAILY Vesicare (Solifenacin) 5 Mg Tab 5 Mg PO DAILY Metformin (Metformin HCl) 1,000 Mg Tab 1,000 Mg PO BIDPC With meals Review of Systems General / Constitutional: No: Fever Eyes: No: Visual changes HENT: Positive: Congestion, No: Headaches Cardiovascular: Positive: Edema, No: Chest Pain or Discomfort Respiratory: Positive: Cough, Shortness of Breath Gastrointestinal: No: Abdominal Pain Genitourinary: No: Dysuria Musculoskeletal: Positive: Edema, No: Pain Skin: No Rash Neurologic: No: Weakness Psychiatric: No: Depression Endocrine: No: Polydipsia Hematologic/Lymphatic: No: Easy Bruising Physical Exam Narrative GENERAL: Morbidly obese well-developed patient in no apparent distress. SKIN: Focused skin assessment reveals no rash and nodules. Skin is Warm and dry. HEAD: Atraumatic. Normocephalic. EYES: Pupils equal and round. No scleral icterus. No injection or drainage. ENT: No nasal bleeding or discharge. Mucous membranes pink and moist. Throat clear NECK: Trachea midline. No JVD. CARDIOVASCULAR: Regular rate and rhythm. No murmur appreciated. RESPIRATORY: No accessory muscle use. Clear to auscultation. Breath sounds equal bilaterally. GASTROINTESTINAL: Abdomen soft, non-tender, nondistended. Hepatic and splenic margins not palpable. MUSCULOSKELETAL: No obvious deformities. No clubbing. No cyanosis. Mild symmetric edema from the mid salazar down bilaterally. There is some chronic hyperpigmentation stasis. NEUROLOGICAL: Awake and alert. No obvious cranial nerve deficits. Motor grossly within normal limits. Normal speech. PSYCHIATRIC: Appropriate mood and affect; insight and judgment normal. Data Data Last Documented VS Vital Signs Date Time Temp Pulse Resp B/P (MAP) Pulse Ox O2 Delivery O2 Flow Rate FiO2 10/01/17 16:40 75 20 130/59 (82) 96 Room Air 10/01/17 13:37 97.3 Orders Orders Iv Access Insert/Monitor (10/01/17 13:57) Complete Blood Count With Diff (10/01/17 13:57) Comprehensive Metabolic Panel (10/01/17 13:57) Prothrombin Time / Inr (Pt) (10/01/17 13:57) Electrocardiogram (10/01/17 ) Chest, Single Ap (10/01/17 ) Labs Laboratory Tests Test 10/01/17 14:02 White Blood Count 11.2 TH/MM3 Red Blood Count 4.45 MIL/MM3 Hemoglobin 11.9 GM/DL Hematocrit 35.9 % Mean Corpuscular Volume 80.8 FL Mean Corpuscular Hemoglobin 26.7 PG Mean Corpuscular Hemoglobin Concent 33.1 % Red Cell Distribution Width 16.2 % Platelet Count 342 TH/MM3 Mean Platelet Volume 6.9 FL Neutrophils (%) (Auto) 66.3 % Lymphocytes (%) (Auto) 19.6 % Monocytes (%) (Auto) 6.5 % Eosinophils (%) (Auto) 6.8 % Basophils (%) (Auto) 0.8 % Neutrophils # (Auto) 7.4 TH/MM3 Lymphocytes # (Auto) 2.2 TH/MM3 Monocytes # (Auto) 0.7 TH/MM3 Eosinophils # (Auto) 0.8 TH/MM3 Basophils # (Auto) 0.1 TH/MM3 CBC Comment DIFF FINAL Differential Comment Prothrombin Time 22.2 SEC Prothromb Time International Ratio 2.2 RATIO Blood Urea Nitrogen 11 MG/DL Creatinine 1.08 MG/DL Random Glucose 133 MG/DL Total Protein 7.0 GM/DL Albumin 3.0 GM/DL Calcium Level 8.8 MG/DL Alkaline Phosphatase 90 U/L Aspartate Amino Transf (AST/SGOT) 15 U/L Alanine Aminotransferase (ALT/SGPT) 23 U/L Total Bilirubin 0.2 MG/DL Sodium Level 139 MEQ/L Potassium Level 4.0 MEQ/L Chloride Level 105 MEQ/L Carbon Dioxide Level 25.2 MEQ/L Anion Gap 9 MEQ/L Estimat Glomerular Filtration Rate 56 ML/MIN MDM Medical Decision Making Medical Screen Exam Complete: Yes Emergency Medical Condition: Yes Medical Record Reviewed: Yes Differential Diagnosis Bronchitis, pneumonia, deconditioning, PE Narrative Course I have reviewed the patient's electronic medical record. IV placed and labs sent I reviewed her EKG shows sinus rhythm without ectopy or tachycardia or ST elevation I reviewed her chest x-ray which is hypoventilated but normal otherwise Labs are reviewed in normal INR is 2.2 on Coumadin I rechecked the patient is doing well. Saturations are in the upper 90s on room air No clinical suspicion of recurrent PE. She has no tachycardia or decreased saturations. No pleuritic or chest pain of any sort. Plus she is therapeutic on Coumadin anyway. She has congestion and productive cough which is not consistent with PE I wrote her doxycycline and albuterol inhaler Diagnosis Primary Impression: Dyspnea on exertion Additional Impression: Acute bronchitis Qualified Codes: J20.8 - Acute bronchitis due to other specified organisms Additional Instructions: The patient was advised to follow up with their physician and return if they worsen. Med/Other Pt SpecificInfo: Prescription(s) given Scripts Albuterol 18 GM Inh (Ventolin Hfa 18 GM Inh) 90 Mcg/Act Aer 1 PUFF INH Q4H Y for SHORTNESS OF BREATH, #1 INHALER 0 Refills Prov: Capo Negrete MD 10/01/17 Doxycycline Hyclate (Doxycycline Hyclate) 100 Mg Cap 100 MG PO BID for Infection, #14 CAP 0 Refills Prov: Capo Negrete MD 10/01/17 Disposition: 01 DISCHARGE HOME Condition: Stable Capo Negrete MD October 01, 2017 14:04
[2017-10-01 14:14] LABS: AUTOMATED NEUTROPHIL # 7.4 TH/MM3 (1.8-7.7); BASOPHIL # 0.1 TH/MM3 (0-0.2); BASOPHIL % 0.8 % (0.0-2.0); EOSINOPHIL # 0.8 TH/MM3 (0-0.4); EOSINOPHIL % 6.8 % (0.0-4.0); HEMATOCRIT 35.9 % (35.0-46.0); HEMOGLOBIN 11.9 GM/DL (11.6-15.3); LYMPH % 19.6 % (9.0-44.0); LYMPHOCYTE # 2.2 TH/MM3 (1.0-4.8); MEAN CELL VOLUME 80.8 FL (80.0-100.0); MEAN CORPUSCULAR HEMOGLOBIN 26.7 PG (27.0-34.0); MEAN CORPUSCULAR HGB CONC 33.1 % (32.0-36.0); MEAN PLATELET VOLUME 6.9 FL (7.0-11.0); MONO % 6.5 % (0.0-8.0); MONOCYTE # 0.7 TH/MM3 (0-0.9); NEUT % 66.3 % (16.0-70.0); PLATELET COUNT 342 TH/MM3 (150-450); RED BLOOD COUNT 4.45 MIL/MM3 (4.00-5.30); RED CELL DISTRIBUTION WIDTH 16.2 % (11.6-17.2); WHITE BLOOD COUNT 11.2 TH/MM3 (4.0-11.0)
[2017-10-01 14:19] LABS: INTERNATIONAL NORMALIZED RATIO 2.2 RATIO; PROTHROMBIN TIME - PATIENT 22.2 SEC (9.8-11.6)
--- NOTE | 2017-10-01 14:22 | RADRPT ---
EXAM DATE/TIME: 10/01/2017 14:02 [facility] COMPARISON: CHEST SINGLE AP, May 13, 2017, 3:45. INDICATIONS : Short of breath MEDICAL HISTORY : Hypercholesterolemia. Hypertension. . Pulmonary embolism. Irregular heartbeat. Anticoagulant therapy. Sleep apnea. PCOS. Fibromyalgia. Depression. SURGICAL HISTORY : Tonsillectomy. Dilation and curettage ENCOUNTER: Initial ACUITY: 2 days PAIN SCORE: 0/10 LOCATION: chest FINDINGS: Mild compensated cardiomegaly. Lungs are aerated but clear. No effusion or pneumothorax. Macro bones CONCLUSION: Underated, prominent cardiac silhouette. Exam limited by body habitus Noé Ballard MD FACR on October 01, 2017 at 14:19 Board Certified Radiologist. This report was verified electronically.
[2017-10-01 14:42] LABS: ALT (GPT) 23 U/L (10-53); AST (GOT) 15 U/L (15-37); BICARBONATE 25.2 MEQ/L (21.0-32.0); BLOOD UREA NITROGEN 11 MG/DL (7-18); CALCIUM 8.8 MG/DL (8.5-10.1); CHLORIDE 105 MEQ/L (98-107); CREATININE 1.08 MG/DL (0.50-1.00); GLOMERULAR FILTRATION RATE 56 ML/MIN (>89); GLUCOSE,RANDOM 133 MG/DL (74-106); SODIUM (NA) 139 MEQ/L (136-145)
[2017-10-01 14:45] LABS: ALKALINE PHOSPHATASE 90 U/L (45-117); TOTAL BILIRUBIN ADULT 0.2 MG/DL (0.2-1.0)
[2017-10-01 15:50] VITALS: BP 141/53; PULSE 76; RESP 21; O2SAT 95
[2017-10-01 16:40] VITALS: BP 130/59; PULSE 75; RESP 20; O2SAT 96
[2017-10-01] MEDS ORDERED: DOXY100C PO (16:54)
[2017-10-01] MEDS ORDERED: VENTAER INH (16:54)
[2017-10-01 17:04] VITALS: BP 121/60
--- NOTE | 2017-10-02 18:29 | EKG ---
Date Performed: 10/01/2017 Time Performed: 14:27:09 PTAGE: 42 years EKG: Sinus rhythm LOW QRS VOLTAGE IN PRECORDIAL LEADS NONSPECIFIC T-WAVE ABNORMALITY BORDERLINE ECG Since the PREVIOUS TRACING , no significant change noted PREVIOUS TRACIN05/11/2017 22.51 DOCTOR: Hernando Rizzo Interpretating Date/Time 10/02/2017 18:27:53
== END 2017-10-01 18:48 | disposition home or self-care (01) ==
LOC: NEPC 13:13
DX: R06.00 Dyspnea, unspecified (principal); J20.8 Acute bronchitis due to other specified organisms; R60.0 Localized edema; R94.31 Abnormal electrocardiogram [ECG] [EKG]; I10 Essential (primary) hypertension; M79.7 Fibromyalgia; E78.00 Pure hypercholesterolemia, unspecified; G47.30 Sleep apnea, unspecified; E66.01 Morbid (severe) obesity due to excess calories; F32.9 Major depressive disorder, single episode, unspecified; Z72.0 Tobacco use; Z79.01 Long term (current) use of anticoagulants; Z86.711 Personal history of pulmonary embolism; Z87.39 Personal history of other diseases of the musculoskeletal system and connective tissue
CPT/HCPCS: 71045; 80053; 85025; 85610; 93005